=== PATIENT | female | born 1975 | race Caucasian/White ===

== ENCOUNTER 2018-10-03 17:23 | Emergency (ER) | payer OTHER ==
[2018-10-03 18:23] LABS: Urine Blood NEGATIVE (NEG); Urine Glucose NEGATIVE (NEG); Urine Protein NEGATIVE (NEG); Urine pH 7.5 (5.0-7.0)
[2018-10-03 18:31] LABS: Absolute Lymphocytes (CBC) 2.4 K/uL (0.7-4.9); Absolute Monocytes 0.3 K/uL (0.1-1.3); Absolute Neutrophil 3.6 K/uL (1.8-8.0); Basophils % 0.8 % (0-1.3); Eosinophils % 1.3 % (0-4.4); Hematocrit 40.5 % (36.0-45.0); Lymphocytes % 36.8 % (15.3-44.8); MPV 8.4 fL (7.6-11.3); Monocytes % 5.3 % (3.3-12.3); RBC Red Blood Cell Count 4.36 M/uL (3.86-4.86)
[2018-10-03 18:43] LABS: ALT/SGPT 28 U/L (12-78); AST/SGOT 21 U/L (15-37); Albumin 4.1 g/dL (3.4-5.0); Alkaline Phosphatase 105 U/L (45-117); BUN Blood Urea Nitrogen 21 mg/dL (7-18); Bicarbonate 32 mmol/L (21-32); Bilirubin Direct < 0.1 mg/dL (0-0.2); Bilirubin Total 0.2 mg/dL (0.2-1.0); Glucose Level 97 mg/dL (74-106); Lipase 253 U/L (73-393); Potassium 3.8 mmol/L (3.5-5.1); Protein, Total 7.7 g/dL (6.4-8.2); Sodium Level 145 mmol/L (136-145)
[2018-10-03] MEDS ORDERED: PROMETHAZINE 25 MG/ML VIAL ONE (18:45)
--- NOTE | 2018-10-03 19:29 | RAD REPORT ---
EXAM DESCRIPTION: CT - Abdomen Pelvis W Contrast - 10/03/2018 7:08 pm CLINICAL HISTORY: Abdominal pain with nausea. COMPARISON: 2016. TECHNIQUE: Computed axial tomography of the abdomen pelvis was obtained. 100 cc Isovue-300 was admin istered intravenously. Oral contrast was not requested which limits evaluation of bowel. All CT scans are performed using dose optimization technique as appropriate and may include automated exposure control or mA/KV adjustment according to patient size. FINDINGS: The liver, spleen, pancreas, adrenal and kidneys appear unremarkable. There is no evidence of diverticulitis. Postsurgical changes involve the stomach A hysterectomy has been performed. An adnexal mass is not seen IMPRESSION: No acute abnormality is displayed.
--- NOTE | 2018-10-03 19:45 | ER ---
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 Transition of care: patient was not received from another setting of care. Onset of symptoms was October 03, 2018. Risk Assessment: Do you want to hurt yourself or someone else? Patient reports no desire to harm self or others. Initial Sepsis Screen: Does the patient meet any 2 criteria? No. Patient's initial sepsis screen is negative. Does the patient have a suspected source of infection? No. Patient's initial sepsis screen is negative. Care prior to arrival: None. 17:35 Method Of Arrival: Ambulatory sg 17:35 Acuity: CINDY 3 sg SYSTEMS TESTER: 19:32 LMP N/A - Hysterectomy tl3 Historical: - Allergies: 17:37 No Known Allergies; sg - PMHx: 17:28 Kidney stones; sg - PSHx: 17:28 Hysterectomy; Hernia repair; rectocele repair; abdominal mass removed; Tubal ligation; sg reversed tubal; - Immunization history:: Adult Immunizations up to date. - Social history:: Smoking status: Patient/guardian denies using tobacco. - Ebola Screening: : Patient negative for fever greater than or equal to 101.5 degrees Fahrenheit, and additional compatible Ebola Virus Disease symptoms Patient denies exposure to infectious person Patient denies travel to an Ebola-affected area in the 21 days before illness onset No symptoms or risks identified at this time. Screenin:40 Abuse screen: Denies threats or abuse. Nutritional screening: No deficits noted. tl3 Tuberculosis screening: No symptoms or risk factors identified. Fall Risk None identified. Assessment: 18:40 General: Appears uncomfortable, slender, well groomed, well developed, well nourished, tl3 Behavior is calm, cooperative, appropriate for age. Pain: Complains of pain in left inguinal area and left lower quadrant. Neuro: Level of Consciousness is awake, alert, obeys commands, Oriented to person, place, time, situation, Appropriate for age. Cardiovascular: Patient's skin is warm and dry. Respiratory: Airway is patent Respiratory effort is even, unlabored, Respiratory pattern is regular, symmetrical. GI: Reports lower abdominal pain. : No signs and/or symptoms were reported regarding the genitourinary system. EENT: No signs and/or symptoms were reported regarding the EENT system. Derm: No signs and/or symptoms reported regarding the dermatologic system. 19:15 Reassessment: patient is back from ct scan.. mg2 20:12 Reassessment: Patient appears in no apparent distress at this time. No changes from tl3 previously documented assessment. Patient and/or family updated on plan of care and expected duration. Pain level reassessed. Patient is alert, oriented x 3, equal unlabored respirations, skin warm/dry/pink. Vital Signs: 17:37 BP 135 / 85; Pulse 72; Resp 17; Temp 98.1; Pulse Ox 100% on R/A; Weight 58.97 kg; sg Height 5 ft. 3 in. (160.02 cm); Pain 8/10; 19:18 BP 119 / 80; Pulse 67; Resp 18; Pulse Ox 100% on R/A; mg2 20:12 BP 119 / 80; Pulse 67; Resp 18; Pulse Ox 100% on R/A; tl3 17:37 Body Mass Index 23.03 (58.97 kg, 160.02 cm) ED Course: 17:24 Patient arrived in ED. sb2 17:24 Herb Murguia MD is Private Physician. sb2 17:27 Arm band placed on. sg 17:32 Mak Smith PA is PHCP. jr8 17:32 Chandra Hassan MD is Attending Physician. jr8 17:37 Triage completed. sg 17:59 Jayla Jane, VINNIE is Primary Nurse. tl3 18:18 Initial lab(s) drawn, by az, sent to lab. Urine collected: clean catch specimen, tm3 cloudy. Inserted saline lock: 22 gauge in left antecubital area, using aseptic technique. 18:40 Patient has correct armband on for positive identification. Pulse ox on. NIBP on. tl3 19:[address] via wheelchair. nj 19:07 CT completed. Patient tolerated procedure well. Patient moved back from CT. nj 19:37 CT Abd/Pelvis - W/Contrast Sent. tl3 19:37 Urine --Ancillary (enter results) Sent. tl3 19:38 Urine Dipstick--Ancillary (enter results) Sent. tl3 19:38 Basic Metabolic Panel Sent. tl3 19:38 CBC with Diff Sent. tl3 19:38 Creatinine for Radiology Sent. tl3 19:38 Hepatic Function Sent. tl3 19:38 Lipase Sent. tl3 19:44 Kobi Schultz MD is Referral Physician. jr8 20:12 No provider procedures requiring assistance completed. IV discontinued, intact, tl3 bleeding controlled, No redness/swelling at site. Pressure dressing applied. Administered Medications: 19:18 Drug: Promethazine 12.5 mg Route: IVP; Infused Over: 2 mins; Site: left antecubital; tl3 19:31 Follow up: Response: Nausea is decreased tl3 Outcome: 19:44 Discharge ordered by . jr8 20:12 Discharged to home ambulatory. tl3 20:12 Condition: stable 20:12 Discharge instructions given to patient, Instructed on discharge instructions, follow up and referral plans. Demonstrated understanding of instructions, follow-up care, medications. 20:15 Patient left the ED. tl3 Signatures: Eddie Min tm3 Fede Bedolla, RN RN sg Mak Smith PA PA jr8 Gabriele Coelho Sheri sb2 Jayla Jane RN RN tl3 Alessandro Hatch RN RN mg2 Corrections: (The following items were deleted from the chart) 19:43 19:32 LMP 2018 tl3 tl3
--- NOTE | 2018-10-03 19:45 | EDPHYS ---
Physician Documentation [facility] Name: Marta Barraza Age: 43 yrs Sex: Female : 1975 Arrival Date: 10/03/2018 Time: 17:24 Bed 27 Private MD: Herb Murguia R ED Physician Chandra Hassan HPI: 10/03 18:29 This 43 yrs old Female presents to ER via Ambulatory with complaints of jr8 abdominal pain. 18:29 The patient presents with abdominal pain in the left lower quadrant. Onset: The jr8 symptoms/episode began/occurred gradually, 2 day(s) ago. The symptoms do not radiate. Associated signs and symptoms: Pertinent positives: nausea. The symptoms are described as stabbing. 18:30 Modifying factors: The symptoms are alleviated by nothing, the symptoms are aggravated jr8 by movement, pressure. Severity of pain: At its worst the pain was moderate in the emergency department the pain has improved mildly. The patient has experienced a previous episode. The patient has not recently seen a physician. Patient with recent diagnosis of bilateral femoral hernias. Stated that the right does not affect her but the left hurts her most every day. For the past couple of days has become much worse. Has already seen surgeon for this and had scheduled surgery but had to move it back to later date. Called them today in which they told her to come to ED to r/o strangulation . 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 - Social history:: Smoking status: Patient/guardian denies using tobacco. - Ebola Screening: : Patient negative for fever greater than or equal to 101.5 degrees Fahrenheit, and additional compatible Ebola Virus Disease symptoms Patient denies exposure to infectious person Patient denies travel to an Ebola-affected area in the 21 days before illness onset No symptoms or risks identified at this time. ROS: 18:30 Eyes: Negative for injury, pain, redness, and discharge, ENT: Negative for injury, jr8 pain, and discharge, Neck: Negative for injury, pain, and swelling, Cardiovascular: Negative for chest pain, palpitations, and edema, Respiratory: Negative for shortness of breath, cough, wheezing, and pleuritic chest pain, Back: Negative for injury and pain, MS/Extremity: Negative for injury and deformity, Skin: Negative for injury, rash, and discoloration, Neuro: Negative for headache, weakness, numbness, tingling, and seizure. 18:30 Abdomen/GI: Positive for abdominal pain, nausea, constipation, Negative for vomiting, diarrhea, abdominal cramps, abdominal distension, anorexia, dysphagia, hematemesis, black/tarry stool, rectal pain, rectal bleeding, bowel incontinence, flatulence. Exam: 18:30 Eyes: Pupils equal round and reactive to light, extra-ocular motions intact. Lids and jr8 lashes normal. Conjunctiva and sclera are non-icteric and not injected. Cornea within normal limits. Periorbital areas with no swelling, redness, or edema. ENT: Nares patent. No nasal discharge, no septal abnormalities noted. Tympanic membranes are normal and external auditory canals are clear. Oropharynx with no redness, swelling, or masses, exudates, or evidence of obstruction, uvula midline. Mucous membranes moist. Neck: Trachea midline, no thyromegaly or masses palpated, and no cervical lymphadenopathy. Supple, full range of motion without nuchal rigidity, or vertebral point tenderness. No Meningismus. Cardiovascular: Regular rate and rhythm with a normal S1 and S2. No gallops, murmurs, or rubs. Normal PMI, no JVD. No pulse deficits. Respiratory: Lungs have equal breath sounds bilaterally, clear to auscultation and percussion. No rales, rhonchi or wheezes noted. No increased work of breathing, no retractions or nasal flaring. Back: No spinal tenderness. No costovertebral tenderness. Full range of motion. Skin: Warm, dry with normal turgor. Normal color with no rashes, no lesions, and no evidence of cellulitis. MS/ Extremity: Pulses equal, no cyanosis. Neurovascular intact. Full, normal range of motion. Neuro: Awake and alert, GCS 15, oriented to person, place, time, and situation. Cranial nerves II-XII grossly intact. Motor strength 5/5 in all extremities. Sensory grossly intact. Cerebellar exam normal. Normal gait. 18:30 Abdomen/GI: Inspection: abdomen appears normal, Bowel sounds: active, all quadrants, Palpation: soft, in all quadrants, mild abdominal tenderness, in the left lower quadrant, mass, is not appreciated, rebound tenderness, is not appreciated, voluntary guarding, is not appreciated, involuntary guarding, is not appreciated, no appreciated organomegaly, Indicators: McBurney's point is not tender, Philippe's sign is negative, Rovsing's sign is negative, Liver: tenderness, is not appreciated, Hernia: noted in the left inguinal area. Vital Signs: 17:37 BP 135 / 85; Pulse 72; Resp 17; Temp 98.1; Pulse Ox 100% on R/A; Weight 58.97 kg; sg Height 5 ft. 3 in. (160.02 cm); Pain 8/10; 19:18 BP 119 / 80; Pulse 67; Resp 18; Pulse Ox 100% on R/A; mg2 20:12 BP 119 / 80; Pulse 67; Resp 18; Pulse Ox 100% on R/A; tl3 17:37 Body Mass Index 23.03 (58.97 kg, 160.02 cm) sg MDM: 17:32 Patient medically screened. jr8 19:41 Data reviewed: vital signs, nurses notes, lab test result(s), radiologic studies, CT jr scan. Data interpreted: Pulse oximetry: on room air is 100 %. Interpretation: normal. Counseling: I had a detailed discussion with the patient and/or guardian regarding: the historical points, exam findings, and any diagnostic results supporting the discharge/admit diagnosis, lab results, radiology results, the need for outpatient follow up, a general surgeon, to return to the emergency department if symptoms worsen or persist or if there are any questions or concerns that arise at home. ED course: No acute hernia related findings on CT. Rest of abdomen unremarkable. No acute lab findings. Will f/u with Dr. Schlutz in a few days. Otherwise feels better and would come back if something were to change or worsen . 10/03 17:41 Order name: Basic Metabolic Panel 8 10/03 17:41 Order name: CBC with Diff 8 10/03 17:41 Order name: Creatinine for Radiology 10/03 17:41 Order name: Hepatic Function 10/03 17:41 Order name: Lipase 10/03 18:09 Order name: Urine Dipstick--Ancillary (enter results) ms 10/03 18:09 Order name: Urine --Ancillary (enter results) ms 10/03 18:24 Order name: Urine --Ancillary; Complete Time: 18:28 EDMS 10/03 18:24 Order name: Urine Dipstick-Ancillary; Complete Time: 18:28 EDMS 10/03 18:34 Order name: CBC with Automated Diff; Complete Time: 18:34 EDMS 10/03 18:41 Order name: Creatinine (Radiology Only); Complete Time: 18:45 EDMS 10/03 18:44 Order name: Basic Metabolic Panel; Complete Time: 18:45 EDMS 10/03 18:44 Order name: Liver (Hepatic) Function; Complete Time: 18:45 EDMS 10/03 18:44 Order name: Lipase; Complete Time: 18:45 EDMS 10/03 17:41 Order name: IV Saline Lock; Complete Time: 19:15 8 10/03 17:41 Order name: Labs collected and sent; Complete Time: 19:15 [facility] 10/03 18:45 Order name: CT Abd/Pelvis - W/Contrast [facility] 10/03 19:31 Order name: CT; Complete Time: 19:34 EDMS Administered Medications: 19:18 Drug: Promethazine 12.5 mg Route: IVP; Infused Over: 2 mins; Site: left antecubital; tl3 19:31 Follow up: Response: Nausea is decreased tl3 Disposition: 10/03/18 19:44 Discharged to Home. Impression: Abdominal and pelvic pain. - Condition is Stable. - Discharge Instructions: Abdominal Pain, Adult. - Medication Reconciliation Form, Thank You Letter, Antibiotic Education, Prescription Opioid Use form. - Follow up: Kobi Schultz MD; When: 2 - 3 days; Reason: Recheck today's complaints, Continuance of care, Re-evaluation by your physician. - Problem is new. - Symptoms have improved. Addendum: 10/06/2018 01:35 Co-signature as Attending Physician, Chandra Hassan MD. g s Signatures: Dispatcher [employer] EDMS Fede Bedolla RN RN sg Mak Smith, AASHISH PA [facility] Chandra Hassan MD MD Jayla Jane RN RN tl3 Corrections: (The following items were deleted from the chart) 10/03 20:15 19:44 10/03/2018 19:44 Discharged to Home. Impression: Abdominal and pelvic pain. tl3 Condition is Stable. Forms are Medication Reconciliation Form, Thank You Letter, Antibiotic Education, Prescription Opioid Use. Follow up: Kobi Schultz; When: 2 - 3 days; Reason: Recheck today's complaints, Continuance of care, Re-evaluation by your physician. Problem is new. Symptoms have improved. jr8
[2018-10-03 20:43] VITALS: BP 119/80; O2SAT 100
[2018-10-03 20:45] VITALS: TEMP 98.1
== END 2018-10-03 20:15 | disposition home or self-care (01) ==
LOC: ER 17:23
DX: R10.9 Unspecified abdominal pain (principal); R10.2 Pelvic and perineal pain; K40.90 Unilateral inguinal hernia, without obstruction or gangrene, not specified as recurrent
CPT/HCPCS: 36415; 74177; 80048; 80076; 81003; 81025; 83690; 85025; 96374; 99284; J2550; Q9967

== ENCOUNTER 2019-01-29 20:27 | Inpatient (IN) | payer OTHER, SELFPAY ==
[2019-01-29 21:18] LABS: Absolute Lymphocytes (CBC) 2.3 K/uL (0.7-4.9); Absolute Monocytes 0.4 K/uL (0.1-1.3); Absolute Neutrophil 4.5 K/uL (1.8-8.0); Basophils % 0.6 % (0-1.3); Eosinophils % 1.6 % (0-4.4); Hematocrit 37.5 % (36.0-45.0); Lymphocytes % 31.8 % (15.3-44.8); MPV 8.3 fL (7.6-11.3); Monocytes % 5.1 % (3.3-12.3); RBC Red Blood Cell Count 3.98 M/uL (3.86-4.86)
--- NOTE | 2019-01-29 21:34 | ER ---
Nurse's Notes [facility] Name: Marta Barraza Age: 43 yrs Sex: Female : 1975 Arrival Date: 01/29/2019 Time: 20:28 Bed 23 Private MD: Herb Murguia R Diagnosis: Femoral hernia Presentation: 01/29 20:34 Presenting complaint: Patient states: Left groin pain at hernia site that started aj suddenly 1 hour ago. Denies redness. Transition of care: patient was not received from another setting of care. Onset of symptoms was January 29, 2019. Risk Assessment: Do you want to hurt yourself or someone else? Patient reports no desire to harm self or others. Initial Sepsis Screen: Does the patient meet any 2 criteria? No. Patient's initial sepsis screen is negative. Does the patient have a suspected source of infection? No. Patient's initial sepsis screen is negative. Care prior to arrival: None. 20:34 Method Of Arrival: Ambulatory aj 20:34 Acuity: CINDY 3 aj Triage Assessment: 20:35 General: Appears in no apparent distress. comfortable, Behavior is calm, cooperative, aj appropriate for age. Pain: Complains of pain in left femoral area. Neuro: Level of Consciousness is awake, alert, obeys commands, Oriented to person, place, time, situation, Appropriate for age. Respiratory: Airway is patent Respiratory effort is even, unlabored, Respiratory pattern is regular, symmetrical. Derm: Skin is intact, is healthy with good turgor, Skin is pink, warm \T\ dry. normal. 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 - Social history:: Smoking status: Patient/guardian denies using tobacco. - Ebola Screening: : Patient negative for fever greater than or equal to 101.5 degrees Fahrenheit, and additional compatible Ebola Virus Disease symptoms Patient denies exposure to infectious person Patient denies travel to an Ebola-affected area in the 21 days before illness onset No symptoms or risks identified at this time. Screenin:21 Abuse screen: Denies threats or abuse. Denies injuries from another. Nutritional rv screening: No deficits noted. Tuberculosis screening: Fall Risk None identified. Assessment: 21:19 General: Appears in no apparent distress. comfortable, Behavior is calm, cooperative. rv Pain: Complains of pain in pelvis and left femoral area Pain currently is 7 out of 10 on a pain scale. Neuro: Level of Consciousness is awake, alert, obeys commands, Oriented to person, place, time, situation. Cardiovascular: Capillary refill < 3 seconds. Respiratory: Airway is patent. GI: No signs and/or symptoms were reported involving the gastrointestinal system. : No signs and/or symptoms were reported regarding the genitourinary system. EENT: No signs and/or symptoms were reported regarding the EENT system. Derm: Skin is intact. Musculoskeletal: No signs and/or symptoms reported regarding the musculoskeletal system. Vital Signs: 20:35 BP 118 / 79; Pulse 81; Resp 19; Temp 97.1; Pulse Ox 96% on R/A; Weight 58.97 kg; Height aj 5 ft. 2 in. (157.48 cm); 21:22 BP 108 / 94; Pulse 68; Resp 16; Pulse Ox 98% ; rv 22:00 BP 113 / 90; Pulse 70; Resp 17; Pulse Ox 99% ; rv 23:00 BP 118 / 74; Pulse 71; Resp 15; Pulse Ox 99% ; rv 01/30 00:00 BP 116 / 81; Pulse 65; Resp 14; Pulse Ox 98% ; rv 00:30 BP 121 / 87; Pulse 58; Resp 15; Pulse Ox 99% ; rv 01/29 20:35 Body Mass Index 23.78 (58.97 kg, 157.48 cm) ED Course: 01/29 20:28 Patient arrived in ED. es 20:29 Herb Murguia MD is Private Physician. es 20:35 Triage completed. aj 20:35 Arm band placed on right wrist. Patient placed in an exam room. aj 20:38 Phuc Aguillon, VINNIE is Primary Nurse. rv 20:46 Nicholas Hewitt MD is Attending Physician. tw4 21:05 Inserted saline lock: 22 gauge in left forearm, using aseptic technique. Blood rv collected. 21:21 Patient has correct armband on for positive identification. Bed in low position. Call rv light in reach. Side rails up X 1. Pulse ox on. NIBP on. 21:32 Dean Muller MD is Hospitalizing Provider. 01/30 00:55 No provider procedures requiring assistance completed. Patient admitted, IV remains in rv place. Administered Medications: No medications were administered Outcome: 01/29 21:33 Decision to Hospitalize by Provider. 01/30 00:55 Admitted to Med/surg accompanied by nurse, via wheelchair, room 218, with chart, Report rv called to [facility] Condition: good Instructed on the need for admit. 01:04 Patient left the ED. rv Signatures: Renay Gaspar, RN RN Kailyn Wellington Terrence, MD MD Phuc Aguillon, RN RN rv
--- NOTE | 2019-01-29 21:34 | EDPHYS ---
Physician Documentation [facility] Name: Marta Barraza Age: 43 yrs Sex: Female : 1975 Arrival Date: 01/29/2019 Time: 20:28 Bed 23 Private MD: Herb Murguia R ED Physician Nicholas Hewitt HPI: 01/30 06:44 This 43 yrs old Female presents to ER via Ambulatory with complaints of LT tw4 SIDE PAIN DOWN TO LEG. 06:44 The patient presents with abdominal pain. Onset: The symptoms/episode began/occurred tw4 last week. The symptoms radiate to left leg. Associated signs and symptoms: none. The symptoms are described as dull. Modifying factors: The symptoms are alleviated by nothing, the symptoms are aggravated by alcohol. Severity of pain: At its worst the pain was moderate in the emergency department the pain is unchanged. The patient has not experienced similar symptoms in the past. 06:44 Pt sent to Ed by Dr Muller. pt symptoms similar to previous pain she has had with tw4 hernia. 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 - Social history:: Smoking status: Patient/guardian denies using tobacco. - Ebola Screening: : Patient negative for fever greater than or equal to 101.5 degrees Fahrenheit, and additional compatible Ebola Virus Disease symptoms Patient denies exposure to infectious person Patient denies travel to an Ebola-affected area in the 21 days before illness onset No symptoms or risks identified at this time. ROS: 01/30 06:44 Constitutional: Negative for fever, chills, and weight loss, Cardiovascular: Negative tw4 for chest pain, palpitations, and edema, Respiratory: Negative for shortness of breath, cough, wheezing, and pleuritic chest pain, Back: Negative for injury and pain, MS/Extremity: Negative for injury and deformity, Skin: Negative for injury, rash, and discoloration, Neuro: Negative for headache, weakness, numbness, tingling, and seizure. Abdomen/GI: Positive for abdominal pain, Negative for nausea and vomiting, nausea, vomiting, and diarrhea, nausea, vomiting, diarrhea, constipation, abdominal cramps, abdominal distension, anorexia, dysphagia, hematemesis, black/tarry stool, rectal pain, rectal bleeding, bowel incontinence. Exam: 06:44 Constitutional: This is a well developed, well nourished patient who is awake, alert, tw4 and in no acute distress. Head/Face: Normocephalic, atraumatic. Chest/axilla: Normal chest wall appearance and motion. Nontender with no deformity. No lesions are appreciated. Cardiovascular: Regular rate and rhythm with a normal S1 and S2. No gallops, murmurs, or rubs. Normal PMI, no JVD. No pulse deficits. Respiratory: Lungs have equal breath sounds bilaterally, clear to auscultation and percussion. No rales, rhonchi or wheezes noted. No increased work of breathing, no retractions or nasal flaring. Back: No spinal tenderness. No costovertebral tenderness. Full range of motion. MS/ Extremity: Pulses equal, no cyanosis. Neurovascular intact. Full, normal range of motion. Neuro: Awake and alert, GCS 15, oriented to person, place, time, and situation. Cranial nerves II-XII grossly intact. Motor strength 5/5 in all extremities. Sensory grossly intact. Cerebellar exam normal. Normal gait. 06:44 Abdomen/GI: Inspection: abdomen appears normal, Bowel sounds: normal, Palpation: moderate abdominal tenderness, in the left lower quadrant. Vital Signs: 01/29 20:35 BP 118 / 79; Pulse 81; Resp 19; Temp 97.1; Pulse Ox 96% on R/A; Weight 58.97 kg; Height aj 5 ft. 2 in. (157.48 cm); 21:22 BP 108 / 94; Pulse 68; Resp 16; Pulse Ox 98% ; rv 22:00 BP 113 / 90; Pulse 70; Resp 17; Pulse Ox 99% ; rv 23:00 BP 118 / 74; Pulse 71; Resp 15; Pulse Ox 99% ; rv 01/30 00:00 BP 116 / 81; Pulse 65; Resp 14; Pulse Ox 98% ; rv 00:30 BP 121 / 87; Pulse 58; Resp 15; Pulse Ox 99% ; rv 01/29 20:35 Body Mass Index 23.78 (58.97 kg, 157.48 cm) aj MDM: 01/29 20:46 Patient medically screened. tw 01/30 06:48 Data reviewed: vital signs, nurses notes. Counseling: I had a detailed discussion with tw the patient and/or guardian regarding: the historical points, exam findings, and any diagnostic results supporting the discharge/admit diagnosis, lab results. Physician consultation: Dean Muller MD regarding admission, and will see patient in inpatient room. Admission orders: after a detailed discussion of the patient's condition and case, the admit orders are written by me. ED course: Pt rested comfortably on the stretcher states that she felt well, no new complaint while waiting in the ED. 01/29 20:51 Order name: Basic Metabolic Panel [facility] 01/29 20:51 Order name: CBC with Diff [facility] 01/29 20:51 Order name: Creatinine for Radiology [facility] 01/29 20:51 Order name: Hepatic Function [facility] 01/29 20:51 Order name: Lipase [facility] 01/30 00:45 Order name: Basic Metabolic Panel [facility] 01/30 00:45 Order name: NPO [facility] 01/30 00:45 Order name: Basic Metabolic Panel [facility] 01/30 00:45 Order name: CBC with Automated Diff [facility] 01/30 00:45 Order name: CBC with Automated Diff [facility] 01/30 00:45 Order name: Lipase [facility] 01/30 00:45 Order name: Lipase [facility] 01/30 00:45 Order name: Liver (Hepatic) Function [facility] 01/30 00:45 Order name: Liver (Hepatic) Function [facility] 01/29 20:51 Order name: IV Saline Lock; Complete Time: 21:24 [facility] 01/29 20:51 Order name: Labs collected and sent; Complete Time: 21:24 [facility] Administered Medications: No medications were administered Disposition: 01/29/19 21:33 Hospitalization ordered by Dean Muller for Inpatient Admission. Preliminary diagnosis is Femoral hernia. - Bed requested for Telemetry/MedSurg (Inpatient). - Status is Inpatient Admission. rv - Condition is Stable. - Problem is new. - Symptoms have improved. UTI on Admission? No Signatures: Dispatcher [employer] EDRenay Schmidt RN RN Nicholas Durand MD MD tw4 Phuc Aguillon, RN RN Traci Murray ar5 Corrections: (The following items were deleted from the chart) 01/29 23:02 21:33 Hospitalization Ordered by Dean Muller MD for Inpatient Admission. Preliminary ar5 diagnosis is Femoral hernia. Bed requested for Telemetry/MedSurg (Inpatient). Status is Inpatient Admission. Condition is Stable. Problem is new. Symptoms have improved. UTI on Admission? No. tw4 01/30 01:04 01/29 23:02 01/29/2019 21:33 Hospitalization Ordered by Dean Muller MD for Inpatient rv Admission. Preliminary diagnosis is Femoral hernia. Bed requested for Telemetry/MedSurg (Inpatient). Status is Inpatient Admission. Condition is Stable. Problem is new. Symptoms have improved. UTI on Admission? No. ar5
[2019-01-29 21:44] LABS: ALT/SGPT 25 U/L (12-78); AST/SGOT 22 U/L (15-37); Albumin 3.9 g/dL (3.4-5.0); Alkaline Phosphatase 109 U/L (45-117); BUN Blood Urea Nitrogen 15 mg/dL (7-18); Bicarbonate 27 mmol/L (21-32); Bilirubin Direct < 0.1 mg/dL (0-0.2); Bilirubin Total 0.3 mg/dL (0.2-1.0); Glucose Level 95 mg/dL (74-106); Lipase 213 U/L (73-393); Potassium 3.7 mmol/L (3.5-5.1); Protein, Total 7.1 g/dL (6.4-8.2); Sodium Level 144 mmol/L (136-145)
[2019-01-30] MEDS ORDERED: ONDANSETRON 4 MG/2 ML VIAL IV PRN (00:43)
[2019-01-30 01:18] VITALS: BMI 25.2
[2019-01-30] MEDS ORDERED: MORPHINE 4 MG/ML SYR IV PRN (01:39)
[2019-01-30] MEDS: D5 0.45 NS 1,000 ML IV SCH ×3 (01:53→16:44)
[2019-01-30] MEDS: PROMETHAZINE 25 MG/ML VIAL IV PRN ×2 (02:39→11:44)
--- NOTE | 2019-01-30 13:02 | P.HP ---
Certification for Inpatient Patient admitted to: Observation With expected LOS: <2 Midnights Patient will require the following post-hospital care: None Practitioner: I am a practitioner with admitting privileges, knowledge of patient current condition, hospital course, and medical plan of care. Services: Services provided to patient in accordance with Admission requirements found in Title 42 Section 412.3 of the Code of Federal Regulations Patient History Date of Service: 01/30/19 Reason for admission: Left lower groin pain with numbness and left leg History of Present Illness: This patient, has been having pain in the left groin area. She had a previous bulge in that area. It had been reduced few weeks ago. He came back last night causing increasing pain and discomfort with numbness in her left leg. She was evaluated in emergency room. She had been scheduled to have this procedure done late last year however it was canceled for some reason. Allergies No Known Drug Allergies Allergy (Verified 01/30/19 01:19) Unknown No Known Allergi Allergy (Uncoded 01/30/19 01:19) Unknown Home medications list reviewed: Yes Home Medications: NK [No Home Meds] 01/30/19 - Past Medical/Surgical History Has patient received pneumonia vaccine in the past: No Diabetic: No Past Medical History: Patient denies medical history -: Kidney Stones -: APPENDECTOMY -: TUBAL LIGTION AND REVERSAL -: Rectocele Repair -: Abdominal mass removed -: Hernia repair - Family History Family History: Reviewed- Non-Contributory - Social History Smoking Status: Never smoker Alcohol use: No CD- Drugs: No Caffeine use: Yes Place of Residence: Home Review of Systems 10-point ROS is otherwise unremarkable Physical Examination - Vital Signs Temperature: 97.5 F Blood Pressure: 106/66 Pulse: 62 Respirations: 16 Pulse Ox (%): 99 - Physical Exam General: Alert (Patient is in no distress at the moment and is comfortable. States that the hernia is reduced.) HEENT: Sclerae nonicteric Respiratory: Normal air movement Cardiovascular: Normal pulses Gastrointestinal: Soft and benign, No tenderness, No rebound, No guarding Musculoskeletal: Other (Mild tenderness in the left inguinal area. There is no mass palpable at the moment.) External genitalia: Deferred - Studies Laboratory Data (last 24 hrs) 01/29/19 21:10: Creatinine 1.04 01/29/19 21:10: WBC 7.3, Hgb 12.8, Hct 37.5, Plt Count 316 01/29/19 21:10: Sodium 144, Potassium 3.7, BUN 15, Creatinine 1.07, Glucose 95, Total Bilirubin 0.3, AST 22, ALT 25, Alkaline Phosphatase 109, Lipase 213 Assessment and Plan - Plan This patient was scheduled before to have bilateral inguinal hernia repairs performed. The rigid to an open procedure. There was a delay in the surgeon was not performed. Since then she has had increasing pain and discomfort more markedly on the left side. On review of the CT scan with the radiologist be feels there is a small inguinal hernia in that area. I will take her to the operating room for laparoscopic repair of these bilateral inguinal hernias with mesh. The risks of this procedure have been discussed. I have told her that there may Re not be another hernia on the right side, that we will try and do it laparoscopically however if I am able to may need to convert to an open procedure. The risks of bleeding, infection, injury to organs and blood vessels were explained. She has had pelvic surgery for rectocele/enterocele/bladder incontinence in the past as well as ventral hernia repairs. She understands and wants us to proceed. - Advance Directives Does patient have a Living Will: No Does patient have a Durable POA for Healthcare: No
[2019-01-30] MEDS ORDERED: MIDAZOLAM HCL 2 MG/2 ML INJ ONE (13:06)
[2019-01-30] MEDS ORDERED: LIDOCAINE 2% MPF 5 ML VIAL ONE (13:06)
[2019-01-30] MEDS ORDERED: PROPOFOL 200 MG/20 ML VIAL IV ONE (13:06)
[2019-01-30] MEDS ORDERED: ROCURONIUM 50 MG/5 ML VIAL IV ONE (13:06)
[2019-01-30] MEDS ORDERED: FENTANYL CITR 250 MCG/5 ML ONE (13:06)
[2019-01-30] MEDS ORDERED: ONDANSETRON 4 MG/2 ML VIAL ONE (13:06)
[2019-01-30] MEDS ORDERED: Ringers Lactate 1,000 ML IV ONE (13:33)
[2019-01-30] MEDS ORDERED: CEFAZOLIN/SWI 1gm 1 GM/10 ML SYR ONE (13:35)
[2019-01-30] MEDS ORDERED: DEXAMETHASONE 10 MG/ML VIAL ONE (13:50)
[2019-01-30] MEDS ORDERED: EPHEDRINE SULF 50 MG/ML VIAL ONE (14:05)
--- NOTE | 2019-01-30 14:42 | P.OP ---
Preoperative diagnosis: Bilateral inguinal hernias Postoperative diagnosis: A torsed hemorrhagic ovarian cyst Primary procedure: Laparoscopy Secondary procedure: Right oophorectomy Anesthesia: General Estimated blood loss: Less than 10 cc Specimen: 1 sent for histopathology Operative Technique: The patient brought the operating room and placed supine on the table. After the induction of adequate general endotracheal anesthesia, a Huizar catheter was inserted. The area of the abdomen was now prepped with a DuraPrep solutions use draped in usual aseptic manner. A subumbilical incision was made. This brought down through the skin and subcutaneous tissue. The dissecting balloon was now passed down towards the pelvis inflated. On removing the inner trocar in place in the camera down through our dissecting balloon we could see that we were intraperitoneal. This patient has had numerous pelvic surgeries including C-sections and appendectomies. Using a Visiport we now entered the peritoneal cavity and created pneumoperitoneum to approximately 12 mm of mercury. The patient is then placed in marked Trendelenburg. We could now review the pelvis and the anterior abdominal wall. Starting from left to right we could see the femoral vessels. The superficial epigastric was identified. There was no evidence of any inguinal hernia seen on the left side. The femoral area was carefully inspected non was noted there is well. Counter pressure from the outside showed all this area to be intact with no evidence of any other abnormalities this area. As the scan across the lower portion the abdomen going to the right side we could see the bladder with the Huizar catheter inside it being decompressed. On the right side there was a area of the remains of her ovary on that right side. Obviously undergone portion with a hemorrhagic cyst. Attention was turned towards the right inguinal area. Once again the epigastric vessel was identified as well as the femoral vessels on Oswaldo's ligament. No hernias were detected in this area as well. Attention was turned back towards is torsed ovary which was now resected using a hot electro cautery scissors. The specimen was suspended and carefully placed into an Endo-Catch and brought out through the umbilical trocar site. At this point the abdomen is inspected. No other midline hernias were noted. There were some adhesions in the left upper quadrant worsened patient has had her gastric sleeve. No hernias were noted along the midline the area of the patient's previous appendectomy did show some adhesions of the omentum to the anterior abdominal wall. These were left alone. At this point our 10 mm was converted down to a 5 through the right lower 5 mm trocar. 2 sutures of 2 0 PDS were used to approximate the facile defect. The muscles were approximated with the same. At this point the pneumoperitoneum was collapsed, the patient taken out of Trendelenburg, and lara were applied to the skin. At the end of the procedure she was stable when sent to the recovery room. Needle sponge instrument count were correct. No drains were placed. Complications: None Transferred to: Recovery Room Condition: Good
[2019-01-30] MEDS ORDERED: NEOSTIGMINE 1 MG/ML -10 ML VIAL ONE (14:46)
[2019-01-30] MEDS ORDERED: GLYCOPYRROLATE 0.2 MG/ML SYR ONE (14:46)
[2019-01-30] MEDS ORDERED: KETOROLAC 30 MG/ML INJ ONE (14:48)
[2019-01-30] MEDS ORDERED: HYDROCODONE/APAP 7.5/325 MG TAB PO PRN (14:48)
[2019-01-30 14:55] VITALS: O2SAT 100
[2019-01-30 18:34] VITALS: BP 117/72; TEMP 97
== END 2019-01-30 19:49 | disposition home or self-care (01) | DRG 743 ==
LOC: ER 20:27 → 2ND 01-30 00:56
PROVIDERS: ADMIT Surgery; ATTEND Surgery
PROC: 0UT04ZZ Resection of Right Ovary, Percutaneous Endoscopic Approach (ICD-10-PCS; principal; 2019-01-30 13:30)
DX: N83.511 Torsion of right ovary and ovarian pedicle (principal); N83.201 Unspecified ovarian cyst, right side; Z90.710 Acquired absence of both cervix and uterus
CPT/HCPCS: 36415; 80048; 80076; 83690; 85025; 88305; 96365; 96367; 99285; J0690; J1100; J2250; J2405; J2550; J2704; J2710; J3010

== ENCOUNTER 2019-05-08 16:08 | Inpatient (IN) | payer SELFPAY ==
--- OUTSIDE RECORDS SUMMARY | 2019-05-08 16:10 | XMS REPORT ---
:1975 [facility] Address [address] [place] [address] [address] [place] [address] Care Team Providers Name Role Phone Fly Hein Unavailable Unavailable Divya Chatterjee Unavailable Unavailable Problems This patient has no known problems. Allergies, Adverse Reactions, Alerts This patient has no known allergies or adverse reactions. Medications This patient has no known medications. Encounters Start End Encounter Admission Attending Care Care Encounter Date/Time Date/Time Type Type Clinicians Facility Department ID 2017-01-26 2017-01-26 Outpatient ASHLEY Hein [id number] 10:49:00 10:49:00 Fly 2017-01-26 2017-01-26 Outpatient ASHLEY Chatterjee [id number] 10:49:00 10:49:00 Divya 2017-01-11 2017-01-11 Outpatient ASHLEY Hien [id number] 13:44:00 13:44:00 Fly
[2019-05-08 17:02] LABS: Absolute Lymphocytes (CBC) 2.4 K/uL (0.7-4.9); Basophils % 0.6 % (0-1.3); Hematocrit 39.8 % (36.0-45.0); Lymphocytes % 30.3 % (15.3-44.8); MPV 8.3 fL (7.6-11.3); RBC Red Blood Cell Count 4.28 M/uL (3.86-4.86)
[2019-05-08 17:25] LABS: ALT/SGPT 24 U/L (12-78); AST/SGOT 24 U/L (15-37); Albumin 3.9 g/dL (3.4-5.0); Alkaline Phosphatase 124 U/L (45-117); BUN Blood Urea Nitrogen 18 mg/dL (7-18); Bicarbonate 29 mmol/L (21-32); Bilirubin Direct < 0.1 mg/dL (0-0.2); Bilirubin Total 0.2 mg/dL (0.2-1.0); Glucose Level 84 mg/dL (74-106); Lipase 172 U/L (73-393); Potassium 4.1 mmol/L (3.5-5.1); Protein, Total 7.4 g/dL (6.4-8.2); Sodium Level 146 mmol/L (136-145)
--- NOTE | 2019-05-08 17:46 | ER ---
Nurse's Notes [facility] Name: Marta Barraza Age: 44 yrs Sex: Female : 1975 Arrival Date: 05/08/2019 Time: 16:12 Bed 14 Private MD: Diagnosis: Biliary colic;Intractable pain Presentation: 05/08 16:16 Presenting complaint: Patient states: blanca been struggling with my gall bladder, my R hj upper abd area is hurting and the pain moves to my R back area; i have scheduled US tomorrow but i cant bear the pain anymore; reports nausea;. Transition of care: patient was not received from another setting of care. Onset of symptoms was May 08, 2019. Risk Assessment: Do you want to hurt yourself or someone else? Patient reports no desire to harm self or others. Initial Sepsis Screen: Does the patient meet any 2 criteria? No. Patient's initial sepsis screen is negative. Does the patient have a suspected source of infection? No. Patient's initial sepsis screen is negative. Care prior to arrival: None. 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 - Social history:: Smoking status: . - Ebola Screening: : Patient denies travel to an Ebola-affected area in the 21 days before illness onset. - Family history:: pertinent for poorly functioning gallbladders. - Hospitalizations: : No recent hospitalization is reported. Screenin:21 Abuse screen: Denies threats or abuse. Nutritional screening: No deficits noted. tw2 Tuberculosis screening: No symptoms or risk factors identified. Fall Risk None identified. Assessment: 16:20 General: Appears in no apparent distress. comfortable, Behavior is calm, cooperative, rb1 Denies fever. Pain: Complains of pain in right upper quadrant Pain currently is 0 out of 10 on a pain scale. at worst was 10 out of 10 on a pain scale. Pain began x a couple weeks. Neuro: Level of Consciousness is awake, alert, obeys commands, Oriented to person, place, time, situation. Cardiovascular: Capillary refill < 3 seconds is brisk in bilateral fingers. Respiratory: Airway is patent Respiratory effort is even, unlabored, Respiratory pattern is regular, symmetrical. GI: Bowel sounds present X 4 quads. Abd is soft X 4 quads Reports nausea. : No signs and/or symptoms were reported regarding the genitourinary system. Derm: Skin is pink, warm \T\ dry. 17:20 Reassessment: Patient appears in no apparent distress at this time. No changes from rb1 previously documented assessment. Pt. is talking with her friend at the bedside. 18:15 Reassessment: Patient appears in no apparent distress at this time. Patient and/or rb1 family updated on plan of care and expected duration. Pain level reassessed. Patient is alert, oriented x 3, equal unlabored respirations, skin warm/dry/pink. 19:41 Reassessment: Patient appears in no apparent distress at this time. Patient and/or jd3 family updated on plan of care and expected duration. Pain level reassessed. Patient is alert, oriented x 3, equal unlabored respirations, skin warm/dry/pink. report given to Shannan B[place]MINGHAM. Vital Signs: 16:18 BP 121 / 91; Pulse 79; Resp 18; Temp 97.3(TE); Pulse Ox 100% on R/A; Weight 61.23 kg; hj Height 5 ft. 2 in. (157.48 cm); Pain 8/10; 17:18 BP 118 / 79; Pulse 70; Resp 16; Temp 98.4(O); Pulse Ox 98% on R/A; Pain 7/10; rb1 18:15 BP 112 / 75; Pulse 64; Resp 17; Temp 98.4(O); Pulse Ox 100% on R/A; Pain 7/10; rb1 19:42 BP 108 / 84; Pulse 67; Resp 17 S; Pulse Ox 99% on R/A; jd3 16:18 Body Mass Index 24.69 (61.23 kg, 157.48 cm) ED Course: 16:12 Patient arrived in ED. mr 16:17 Triage completed. 16:18 Arm band placed on right wrist. 16:19 Sky Rizzo MD is Attending Physician. rn 16:22 Placed in gown. Bed in low position. tw2 16:31 Kelley Valdez, RN is Primary Nurse. rb1 16:35 Missed attempt(s): 22 gauge in right antecubital area. Bleeding controlled, band aid rb1 applied, catheter tip intact. 16:50 Inserted saline lock: 22 gauge in left antecubital area, using aseptic technique. Blood tw2 collected. 17:26 US Abdomen Limited In Process Unspecified. EDMS 17:44 Dean Muller MD is Hospitalizing Provider. rn 18:58 Report given to VINNIE Monroy. rb1 19:41 No provider procedures requiring assistance completed. Patient admitted, IV remains in jd3 place. Administered Medications: 18:50 Drug: Phenergan 12.5 mg Route: IVP; Site: left antecubital; rb1 19:50 Follow up: Response: No adverse reaction jd3 18:50 Drug: morphine 4 mg Route: IVP; Site: left antecubital; rb1 19:50 Follow up: Response: No adverse reaction; RASS: Alert and Calm (0) jd3 Outcome: 17:46 Decision to Hospitalize by Provider. rn 19:41 Admitted to Med/surg accompanied by tech, via wheelchair, room 427, with chart, Report jd3 called to Shannan BIRMINGHAM 19:41 Condition: stable 19:41 Instructed on the need for admit, Demonstrated understanding of instructions. 20:22 Patient left the ED. jd3 Signatures: Dispatcher [employer] [facility] CernaSilvia Sky Rizzo MD MD rn Joaquin, Henry, RN RN Kelley Valdez, RN RN rb1 Marie Bill RN RN tw2 Shaq Galdamez RN RN jd3 Corrections: (The following items were deleted from the chart) 16:20 16:18 Pulse 79bpm; Resp 18bpm; Pulse Ox 100% RA; Temp 97.3F Temporal; 61.23 kg; Height hj 5 ft. 2 in.; BMI: 24.6; Pain 8/10; hj 20:09 20:09 Response: No adverse reaction; RASS: Alert and Calm (0) jd3 jd3
--- NOTE | 2019-05-08 17:47 | RAD REPORT ---
EXAM DESCRIPTION: US - Abdomen Exam Limited - 05/08/2019 5:25 pm CLINICAL HISTORY: RUQ pain COMPARISON: Abdomen Pelvis W Contrast dated 10/03/2018 FINDINGS: No gallstones, sludge or other abnormalities within the gallbladder lumen. There is no wal l thickening or pericholecystic fluid. No common duct stone or biliary tree dilatation identified. IMPRESSION: Normal gallbladder and biliary tree ultrasound.
--- NOTE | 2019-05-08 17:47 | EDPHYS ---
Physician Documentation [facility] Name: Marta Barraza Age: 44 yrs Sex: Female : 1975 Arrival Date: 05/08/2019 Time: 16:12 Bed 14 Private MD: ED Physician Sky Rizzo HPI: 05/08 17:38 This 44 yrs old Female presents to ER via Ambulatory with complaints of rn Abdominal Pain, Shoulder Pain. 17:38 The patient presents with abdominal pain in the epigastric area, in the right upper rn quadrant. Onset: The symptoms/episode began/occurred just prior to arrival. The symptoms radiate to the right shoulder. Associated signs and symptoms: Pertinent positives: nausea, Pertinent negatives: blood in stools, diarrhea, dysuria, fever, shortness of breath. The symptoms are described as sharp, stabbing. Modifying factors: The symptoms are alleviated by nothing, the symptoms are aggravated by food, touching the area. Severity of pain: At its worst the pain was severe in the emergency department the pain has improved. The patient has experienced similar episodes in the past. The patient has been recently seen by a physician:. Reports seen by Dr. Muller last week, has outpt u/s scheduled tomorrow, came in for severe pain and couldn't wait. No fever, + nausea. Both daughters had gallbladders removed and due to poor function.. 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 - Social history:: Smoking status: . - Ebola Screening: : Patient denies travel to an Ebola-affected area in the 21 days before illness onset. - Family history:: pertinent for poorly functioning gallbladders. - Hospitalizations: : No recent hospitalization is reported. ROS: 17:38 Constitutional: Negative for fever, chills, and weight loss, Eyes: Negative for injury, rn pain, redness, and discharge, Neck: Negative for injury, pain, and swelling, Cardiovascular: Negative for chest pain, palpitations, and edema, Respiratory: Negative for shortness of breath, cough, wheezing, and pleuritic chest pain, Abdomen/GI: + RUQ abd pain and nausea MS/Extremity: Negative for injury and deformity, Skin: Negative for injury, rash, and discoloration, Neuro: Negative for headache, weakness, numbness, tingling, and seizure. Exam: 17:38 Constitutional: This is a well developed, well nourished patient who is awake, alert, rn anxious Head/Face: Normocephalic, atraumatic. Eyes: Pupils equal round and reactive to light, extra-ocular motions intact. Lids and lashes normal. Conjunctiva and sclera are non-icteric and not injected. Cornea within normal limits. Periorbital areas with no swelling, redness, or edema. Cardiovascular: Regular rate and rhythm. No pulse deficits. Respiratory: No increased work of breathing, no retractions or nasal flaring. Abdomen/GI: soft, + mild RUQ tenderness, neg tyler Skin: Warm, dry with normal turgor. Normal color with no rashes, no lesions, and no evidence of cellulitis. MS/ Extremity: Pulses equal, no cyanosis. Neurovascular intact. Full, normal range of motion. Equal circumference. Vital Signs: 16:18 BP 121 / 91; Pulse 79; Resp 18; Temp 97.3(TE); Pulse Ox 100% on R/A; Weight 61.23 kg; hj Height 5 ft. 2 in. (157.48 cm); Pain 8/10; 17:18 BP 118 / 79; Pulse 70; Resp 16; Temp 98.4(O); Pulse Ox 98% on R/A; Pain 7/10; rb1 18:15 BP 112 / 75; Pulse 64; Resp 17; Temp 98.4(O); Pulse Ox 100% on R/A; Pain 7/10; rb1 19:42 BP 108 / 84; Pulse 67; Resp 17 S; Pulse Ox 99% on R/A; jd3 16:18 Body Mass Index 24.69 (61.23 kg, 157.48 cm) hj MDM: 16:19 Patient medically screened. rn 17:38 Differential diagnosis: cholecystitis, Cholelithiasis, gastritis, gastroesophageal rn reflux disease, non-specific abd pain, pancreatitis. Data reviewed: vital signs, nurses notes, lab test result(s), radiologic studies, ultrasound, and as a result, I will admit patient. Counseling: I had a detailed discussion with the patient and/or guardian regarding: the historical points, exam findings, and any diagnostic results supporting the discharge/admit diagnosis, lab results, radiology results, the need for further work-up and treatment in the hospital. Response to treatment: the patient's symptoms have mildly improved after treatment, and as a result, I will admit patient. Admission orders: after a detailed discussion of the patient's condition and case, the admit orders are written by me. ED course: Pt with elevated alk phos, normal gallbladder u/s, but story very suspicious for gallbladder pathology. Needs HIDA scan to further investigate, given severe pain, will admit to Dr. Muller, who agrees to take patient to his service. . 05/08 16:20 Order name: CBC with Diff; Complete Time: 17:29 rn 05/08 16:20 Order name: Basic Metabolic Panel; Complete Time: 17:29 rn 05/08 16:20 Order name: US Abdomen Limited; Complete Time: 18:32 rn 05/08 16:20 Order name: LFT's; Complete Time: 17:29 rn 05/08 16:20 Order name: Lipase; Complete Time: 17:29 rn 05/08 16:20 Order name: IV Start; Complete Time: 16:51 rn Administered Medications: 18:50 Drug: Phenergan 12.5 mg Route: IVP; Site: left antecubital; rb1 19:50 Follow up: Response: No adverse reaction jd3 18:50 Drug: morphine 4 mg Route: IVP; Site: left antecubital; rb1 19:50 Follow up: Response: No adverse reaction; RASS: Alert and Calm (0) jd3 Disposition: 05/08/19 17:46 Hospitalization ordered by Dean Muller for Observation. Preliminary diagnosis are Biliary colic, Intractable pain. - Bed requested for Telemetry/MedSurg (observation). - Status is Observation. jd3 - Condition is Stable. - Problem is an acute exacerbation. - Symptoms have improved. UTI on Admission? No Signatures: Dispatcher [employer] EDMS Maricarmen Sterling RN RN Sky Rizzo MD MD rn Joaquin, Henry RN VINNIE Kelley Valdez RN RN rb1 Marie Bill RN RN tw2 Shaq Galdamez RN RN jd3 Corrections: (The following items were deleted from the chart) 18:28 17:46 Hospitalization Ordered by Dean Muller MD for Observation. Preliminary dw diagnosis is Biliary colic; Intractable pain. Bed requested for Telemetry/MedSurg (observation). Status is Observation. Condition is Stable. Problem is an acute exacerbation. Symptoms have improved. UTI on Admission? No. rn 20:22 18:28 05/08/2019 17:46 Hospitalization Ordered by Dean Muller MD for Observation. jd3 Preliminary diagnosis is Biliary colic; Intractable pain. Bed requested for Telemetry/MedSurg (observation). Status is Observation. Condition is Stable. Problem is an acute exacerbation. Symptoms have improved. UTI on Admission? No. dw
[2019-05-08] MEDS ORDERED: PROMETHAZINE 25 MG/ML VIAL ONE (18:37)
[2019-05-08] MEDS ORDERED: MORPHINE 4 MG/ML SYR ONE (18:38)
[2019-05-08] MEDS ORDERED: ONDANSETRON 4 MG/2 ML VIAL IV PRN (20:28)
[2019-05-08 20:44] VITALS: BMI 26.2
[2019-05-08] MEDS: D5 0.45 NS 1,000 ML IV SCH (21:00)
[2019-05-08] MEDS: PROMETHAZINE 25 MG/ML VIAL IV PRN (23:25)
[2019-05-08] MEDS: MORPHINE 4 MG/ML SYR IV PRN (23:25)
[2019-05-09] MEDS: D5 0.45 NS 1,000 ML IV SCH ×2 (04:09→20:28)
[2019-05-09 04:40] LABS: Absolute Lymphocytes (CBC) 2.7 K/uL (0.7-4.9); Lymphocytes % 47.4 % (15.3-44.8); MPV 9.2 fL (7.6-11.3); RBC Red Blood Cell Count 3.94 M/uL (3.86-4.86)
[2019-05-09 06:12] LABS: Albumin 3.2 g/dL (3.4-5.0); Bilirubin Direct 0.1 mg/dL (0-0.2); Bilirubin Total 0.4 mg/dL (0.2-1.0); Potassium 3.6 mmol/L (3.5-5.1); Protein, Total 5.9 g/dL (6.4-8.2)
[2019-05-09] MEDS: PROMETHAZINE 25 MG/ML VIAL IV PRN ×3 (09:02→23:59)
[2019-05-09] MEDS: MORPHINE 4 MG/ML SYR IV PRN (09:03)
--- NOTE | 2019-05-09 09:33 | RAD REPORT ---
EXAM DESCRIPTION: NM - Hepatobiliary System W/ Ph - 05/09/2019 9:16 am CLINICAL HISTORY: biliary colic Abdominal pain COMPARISON: No comparisons TECHNIQUE: The patient was administered 6.3 mCi Tc99m Choletec. Imaging of the right upper quadrant was performed initially for up to 60 minutes. Gallbladder ejection fraction determination was then performed utilizing synthetic 1.3 mgm CCK over a slow 30 minute infusion. FINDINGS: Normal hepatic uptake and excretion with appropriate clearance of background blood pool ac tivity. Normal visualization of biliary and small bowel activity. Gallbladder visualizes within normal time limits. The calculated ejection fraction is 35% (normal gre ater than 35%). Subjective pain reported by the patient: Pre-procedure - nausea During or subsequent to synthetic CCK infusion - significant pain 04/28 IMPRESSION: Patient cystic duct and patent sphincter of Oddi. No delay in visualization of the gallb ladder, biliary tree, or duodenum. Ejection fraction is 35% (normal greater than 35%). Subjective patient pain assessment as detailed above.
[2019-05-09] MEDS ORDERED: ONDANSETRON 4 MG/2 ML VIAL ONE (13:50)
[2019-05-09] MEDS ORDERED: GLYCOPYRROLATE 0.2 MG/ML SYR ONE ×2 (13:50→13:53)
[2019-05-09] MEDS ORDERED: LIDOCAINE 2% MPF 5 ML VIAL ONE (13:50)
[2019-05-09] MEDS ORDERED: PROPOFOL 200 MG/20 ML VIAL IV ONE (13:50)
[2019-05-09] MEDS ORDERED: FENTANYL CITR 250 MCG/5 ML ONE (13:51)
[2019-05-09] MEDS ORDERED: NEOSTIGMINE 1 MG/ML -10 ML VIAL ONE (13:52)
[2019-05-09] MEDS ORDERED: ROCURONIUM 50 MG/5 ML VIAL IV ONE (13:52)
[2019-05-09] MEDS ORDERED: MIDAZOLAM HCL 2 MG/2 ML INJ ONE (13:54)
[2019-05-09] MEDS ORDERED: Ringers Lactate 1,000 ML IV ONE (14:13)
[2019-05-09] MEDS ORDERED: CEFOXITIN/SWI 1gm 1 GM/10 ML SYR IVP ONE (14:15)
--- NOTE | 2019-05-09 15:14 | P.HP ---
Date of Service: 05/09/19 PC: This 44-year-old female presents emergency room with severe right upper quadrant abdominal pain for diagnosis and treatment. HPC: Patient has had this pain off and on for the last few months. She complains of pain up underneath the rib cage, radiating into her back. I had seen her before for acute appendicitis. She also complains of a epigastric hernia. Yesterday however the pain became very severe, will radiating to her back, and she could no longer stand it to the emergency room were in ultrasound was performed. It was negative. This may be however complaints of persistent discomfort and was admitted for observation pain control. This morning we obtained a HIDA scan which shows ejection fraction of 35%. This is consistent with biliary colic that she has been experiencing. PSHx: Previous appendectomy SOC: Allergic to SYS REVIEW: No cough, wheeze, shortness of breath. No chest pain or palpitations. No urinary complaints. O/E awake alert stable HEENT: Not jaundiced Chest: Clear ABD: Mild right upper quadrant tenderness LOCO: Intact DATA: HIDA scan shows ejection fraction approximately 35%, consistent with biliary dyskinesia. IMPRESSION: Chronic cholecystitis, biliary dyskinesia PLAN: I will take to the operating room for laparoscopic possible open cholecystectomy with cholangiogram. The risks of this procedure have been discussed. The possibility of bleeding, infection, injury to surrounding structures were explained. The possibility of damage to the bile ducts was outlined. The need for an open and/or further surgeries and procedures was described. She understands and wants us to proceed.
--- NOTE | 2019-05-09 16:18 | P.OP ---
Preoperative diagnosis: Cholecystitis with biliary dyskinesia Postoperative diagnosis: Cholecystitis with biliary dyskinesia Primary procedure: Laparoscopic cholecystectomy Secondary procedure: Cholangiogram Other procedure(s): Suture repair of ventral Hernia Anesthesia: General Estimated blood loss: Less than 10 cc Specimen: 1 gallbladder and contents Operative Technique: The patient was brought to the operating room and placed supine on the table. After the induction of adequate general endotracheal anesthesia, the area of the abdomen was prepped with a DuraPrep solution, and she was draped in usual aseptic manner. The umbilicus was injected with 0.25% Marcaine. A skin incision was made. The Visiport was now used to enter the peritoneal cavity and created pneumoperitoneum to approximately 12 mm of mercury. Under direct vision a 5 mm trocar was placed in the upper midline. This is the area with the patient's complaints of pain in discomfort and there is also a facile defect in this area. We could actually see it on transillumination of the peritoneal cavity. 2 other 5 mm trocars were placed on the right lateral side of the abdomen after she had been placed in reverse Trendelenburg and rolled to the left. We now could visualize the right upper quadrant. We could a chronically distended gallbladder that was mildly injected. Any adhesions of the omentum were removed from the serosal surface. A grasper was placed on the fundus. Another down by Pako's pouch. Applying lateral traction we were able to diet dissect and expose the cystic duct and artery. Having obtained the critical view. The artery was clipped and divided. A clip placed between the gallbladder and the cystic ducts. An opening was now made into the cystic duct through which we obtained a normal intraoperative cholangiogram. The catheter was removed. Clips were placed on the distal portion of the cystic duct. The duct. The gallbladder was dissected free from the liver bed, placed into an Endo -Catch, and brought out through the umbilical trocar site. Attention was turned towards the upper midline trocar site. Gentle dissection allowed us to place a finger tip down on the facile defect in this area. Using Endo Close the fascia was approximated to bring the 2 edges together. The suture was tied. The Endo Close was also used to approximate the umbilical trocar defect. At this point the abdomen was inspected to ensure adequate hemostasis. Irrigating fluid was aspirated from the peritoneal cavity. Sutures were now tied, the trocars removed , and lara were applied to the skin. She was stable when sent to the recovery room. Needle sponge instrument count were correct. Complications: None Transferred to: Recovery Room Condition: Good
[2019-05-09] MEDS ORDERED: MEPERIDINE HCL 25 MG/0.5 ML ONE (16:29)
[2019-05-09 21:20] VITALS: O2SAT 98
[2019-05-10] MEDS: D5 0.45 NS 1,000 ML IV SCH ×3 (03:38→05:47)
[2019-05-10] MEDS: PROMETHAZINE 25 MG/ML VIAL IV PRN (05:45)
--- NOTE | 2019-05-10 07:04 | RAD REPORT ---
EXAM DESCRIPTION: RAD - Cholangiogram Oper-Xray Or - 05/09/2019 9:17 pm FINDINGS: Two portable C-arm views were submitted from intraoperative cholangiogram. No duct stone, stricture or other intraluminal filling defects identified in the biliary tree on the submitted images. Full assessment is limited when only selected images are available. Fluoro time was 0.2 minutes.
[2019-05-10 11:11] LABS: Urine Appearance CLEAR; Urine Bilirubin NEGATIVE (NEG); Urine Blood NEGATIVE (NEG); Urine Color YELLOW; Urine Glucose NEGATIVE (NEG); Urine Protein NEGATIVE (NEG); Urine Specific Gravity <=1.005 (1.005-1.030); Urine Urobilinogen 0.2 mg/dL (0.2-1.0); Urine pH 7.5 (5.0-7.0)
[2019-05-10 11:19] LABS: Urine Microscopic Reflex NO UMIC
[2019-05-10] MEDS ORDERED: ACETAMINOPHEN 500 MG TAB PO PRN (11:47)
[2019-05-10 12:17] VITALS: BP 111/65; TEMP 98.9
== END 2019-05-10 13:12 | disposition home or self-care (01) | DRG 419 ==
LOC: ER 16:08 → ERHOLD 17:49 → 4TH 20:04 → OBSVTOIN 05-10 07:56
PROVIDERS: ADMIT Surgery; ATTEND Surgery
PROC: BF00YZZ Plain Radiography of Bile Ducts using Other Contrast (ICD-10-PCS; 2019-05-09)
PROC: 0FT44ZZ Resection of Gallbladder, Percutaneous Endoscopic Approach (ICD-10-PCS; principal; 2019-05-09 13:15)
DX: K81.1 Chronic cholecystitis (principal); K82.8 Other specified diseases of gallbladder
CPT/HCPCS: 36415; 74300; 76705; 78227; 80048; 80076; 81003; 83690; 85025; 87077; 87086; 87088; 87186; 88304; 96374; 96375; 99285; A9537; G0378; J2175; J2250; J2405; J2550; J2704; J2710; J2805; J3010

== ENCOUNTER 2019-05-14 17:12 | Inpatient (IN) | payer SELFPAY ==
--- OUTSIDE RECORDS SUMMARY | 2019-05-14 17:13 | XMS REPORT ---
:1975 [facility] Address [address] [place] [address] [address] [place] [address] Care Team Providers Name Role Phone Fly Hein Unavailable Unavailable Divya Chatterjee Unavailable Unavailable Problems This patient has no known problems. Allergies, Adverse Reactions, Alerts This patient has no known allergies or adverse reactions. Medications This patient has no known medications. Encounters Start End Encounter Admission Attending Care Care Encounter Date/Time Date/Time Type Type Clinicians Facility Department ID 2017-01-26 2017-01-26 Outpatient ASHLEY Hein [id number] 10:49:00 10:49:00 Fly 2017-01-26 2017-01-26 Outpatient ASHLEY Chatterjee [id number] 10:49:00 10:49:00 Divya 2017-01-11 2017-01-11 Outpatient ASHLEY Hein [id number] 13:44:00 13:44:00 Fly
[2019-05-14] MEDS ORDERED: PROMETHAZINE 25 MG/ML VIAL ONE (17:28)
[2019-05-14] MEDS ORDERED: FAMOTIDINE 20 MG/2 ML VIAL IV ONE (17:29)
[2019-05-14] MEDS ORDERED: MORPHINE 4 MG/ML SYR ONE ×2 (17:29→21:42)
[2019-05-14] MEDS ORDERED: NA CHLORIDE 0.9% 1,000 ML ONE ×2 (17:29→19:20)
[2019-05-14 18:07] LABS: Absolute Lymphocytes (CBC) 1.5 K/uL (0.7-4.9); Basophils % 0.4 % (0-1.3); Lymphocytes % 11.3 % (15.3-44.8); MPV 8.7 fL (7.6-11.3); RBC Red Blood Cell Count 3.94 M/uL (3.86-4.86)
[2019-05-14] MEDS ORDERED: HYDROMORPHONE HCL 1 MG/ML INJ ONE (18:13)
[2019-05-14] MEDS ORDERED: METOCLOPRAMIDE 10 MG/2mL INJ ONE ×2 (18:13→19:19)
[2019-05-14 18:26] LABS: Protime INR 1.13
[2019-05-14 18:28] LABS: Albumin 3.1 g/dL (3.4-5.0); Bilirubin Direct 0.7 mg/dL (0-0.2); Bilirubin Total 1.4 mg/dL (0.2-1.0); Magnesium 2.2 mg/dL (1.8-2.4); Potassium 3.5 mmol/L (3.5-5.1)
[2019-05-14] MEDS ORDERED: KETOROLAC 30 MG/ML INJ ONE (18:58)
[2019-05-14] MEDS ORDERED: PANTOPRAZOLE 40 MG INJ ONE (19:19)
--- NOTE | 2019-05-14 19:46 | RAD REPORT ---
EXAM DESCRIPTION: CT - Abdomen Pelvis W Contrast - 05/14/2019 7:28 pm CLINICAL HISTORY: ABD PAIN COMPARISON: CT study September 2018 TECHNIQUE: Biphasic, helical CT imaging of the abdomen and pelvis was performed following 100 ml non -ionic IV contrast. Oral contrast given. All CT scans are performed using dose optimization technique as appropriate and may include automated exposure control or mA/KV adjustment according to patient size. FINDINGS: Minimal bilateral pleural effusions are present with posterior gutter atelectasis. The liver, spleen, and pancreas show no suspicious findings. Cholecystectomy clips are present. Stran ding is present in the gallbladder fossa. Cholecystectomy changes are new from the September examinatio n. Skin lara are present in a pattern typical for laparoscopic cholecystectomy. May 09 imaging shows intraoperative cholangiogram procedure. The fluid and stranding at the gallbladder fossa and a small amount of ascites in the peritoneal cavity within normal limits for recent surgery. Skin staple s are still in place. Fluid in the dependent portion the pelvis also within limits of normal. Symmetric renal function is seen with no hydronephrosis or suspicious renal mass. No pyelonephritis o r acute parenchymal process. No bladder abnormalities. No adrenal abnormalities. No gastric dilatation or wall thickening. A few prominent small bowel loops are present likely some c omponent of ileus related to the surgery. Moderate stool volume is seen in the transverse colon cecum and ascending colon. Descending, sigmoid and rectum are decompressed. No obstructing mass. An acute colon process is not seen. No hernia, mass or bulky lymphadenopathy. No suspicious bony findings. IMPRESSION: Fluid and stranding changes in the peritoneal cavity are all within normal limits for th e recent laparoscopic cholecystectomy. No abscess or other surgical complication seen. Moderate stool volume is present filling the colon from cecum to splenic flexure. Left-side of the co priyank is otherwise decompressed with no acute colon process seen. A few prominent proximal small bowel loops are present not clearly outside of normal range but possib ly a minimal ileus component.
--- NOTE | 2019-05-14 20:17 | ER ---
Nurse's Notes [facility] Name: Marta Barraza Age: 44 yrs Sex: Female : 1975 Arrival Date: 05/14/2019 Time: 17:14 Bed 6 Private MD: Herb Murguia R Diagnosis: Upper abdominal pain, unspecified-post cholecystectomy Presentation: 05/14 17:14 Presenting complaint: Patient states: i have this abd pain and back pain that started hj Tuesday, went to [facility] via ambulance was told it was constipation and gas and today its getting worse; reports fever and vomiting;. Transition of care: patient was not received from another setting of care. Onset of symptoms was May 14, 2019. Risk Assessment: Do you want to hurt yourself or someone else? Patient reports no desire to harm self or others. Initial Sepsis Screen: Does the patient meet any 2 criteria? No. Patient's initial sepsis screen is negative. Does the patient have a suspected source of infection? No. Patient's initial sepsis screen is negative. Care prior to arrival: None. 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 - Social history:: Smoking status: . - Ebola Screening: : Patient denies travel to an Ebola-affected area in the 21 days before illness onset. Screenin:26 Abuse screen: Denies threats or abuse. Nutritional screening: No deficits noted. tw2 Tuberculosis screening: No symptoms or risk factors identified. Fall Risk None identified. Assessment: 17:44 General: Appears uncomfortable, Behavior is calm, cooperative, appropriate for age. tw2 Pain: Complains of pain in abdomen. Neuro: Level of Consciousness is awake, alert, obeys commands, Oriented to person, place, time, situation. Cardiovascular: Heart tones S1 S2 Patient's skin is warm and dry. Respiratory: Airway is patent Respiratory effort is even, unlabored, Respiratory pattern is regular, symmetrical, Breath sounds are clear bilaterally. GI: Bowel sounds present X 4 quads. Abd is soft X 4 quads Reports lower abdominal pain, upper abdominal pain, pt reports gallbladder was removed 1 week ago. GI: Reports bloating, constipation, nausea. : No signs and/or symptoms were reported regarding the genitourinary system. EENT: No signs and/or symptoms were reported regarding the EENT system. Derm: No signs and/or symptoms reported regarding the dermatologic system. Musculoskeletal: Range of motion: intact in all extremities. 18:22 Reassessment: No changes from previously documented assessment. Patient and/or family tw2 updated on plan of care and expected duration. Pain level reassessed. Patient is alert, oriented x 3, equal unlabored respirations, skin warm/dry/pink. Patient states symptoms have not improved. 19:52 General: Appears comfortable, Behavior is calm, drowsy. Neuro: Level of Consciousness ak1 is awake, alert, obeys commands. Cardiovascular: No deficits noted. Respiratory: Airway is patent Respiratory effort is unlabored. GI: Bowel sounds present X 4 quads. Abd is soft X 4 quads Reports lower abdominal pain, upper abdominal pain, bloating, constipation, nausea. : No signs and/or symptoms were reported regarding the genitourinary system. EENT: No signs and/or symptoms were reported regarding the EENT system. Derm: No signs and/or symptoms reported regarding the dermatologic system. Musculoskeletal: No signs and/or symptoms reported regarding the musculoskeletal system. 20:35 Reassessment: pt easily to wake. pt informed of admission status and NPO. ak1 21:45 Reassessment: Patient appears in no apparent distress at this time. Patient is alert, rr5 oriented x 3, equal unlabored respirations, skin warm/dry/pink. complaining of left shoulder pain. pain score 8/10. ED provider aware with order made and carried out. 22:26 Reassessment: Patient appears in no apparent distress at this time. Patient and/or rr5 family updated on plan of care and expected duration. Pain level reassessed. Patient is alert, oriented x 3, equal unlabored respirations, skin warm/dry/pink. transferred to medical surgical floor. vitally stable no complaints made. Vital Signs: 17:16 BP 158 / 93; Pulse 78; Resp 18; Temp 98.1(O); Pulse Ox 96% on R/A; Weight 61.23 kg; hj Height 5 ft. 2 in. (157.48 cm); Pain 10/10; 18:22 BP 148 / 93; Pulse 90; Resp 17; Pulse Ox 95% on R/A; Pain 10/10; tw2 19:20 BP 121 / 81; Pulse 85; Resp 16; Temp 98; Pulse Ox 99% ; rr5 20:00 BP 119 / 69; Pulse 83; Resp 17; Pulse Ox 100% ; rr5 21:00 BP 125 / 75; Pulse 88; Resp 19; Pulse Ox 99% ; rr5 21:47 BP 128 / 79; Pulse 80; Resp 17; Pulse Ox 99% on R/A; Pain 8/10; rr5 17:16 Body Mass Index 24.69 (61.23 kg, 157.48 cm) hj ED Course: 17:14 Patient arrived in ED. mr 17:14 Herb Murguia MD is Private Physician. mr 17:15 Triage completed. hj 17:16 Arm band placed on right wrist. hj 17:18 Lonny Escobedo PA is PHCP. cp 17:18 Lonny Harper MD is Attending Physician. cp 17:26 Bed in low position. Call light in reach. tw2 17:30 Inserted saline lock: 22 gauge in left antecubital area, using aseptic technique. Blood tw2 collected. 17:42 Marie Bill, RN is Primary Nurse. tw2 19:16 Report given to VINNIE Rg. tw2 19:28 CT Abd/Pelvis - PO and IV Contrast In Process Unspecified. EDMS 20:05 Chandra Hassan MD is Attending Physician. cp 20:14 Dean Muller MD is Hospitalizing Provider. cp 21:24 No provider procedures requiring assistance completed. Patient admitted, IV remains in ak1 place. Administered Medications: 17:28 CANCELLED (pt allergic): Zofran 4 mg IVP once; over 2 minutes tw2 17:30 Drug: NS 0.9% 1000 ml Route: IV; Rate: 1 bolus; Site: left antecubital; tw2 21:03 Follow up: IV Status: Completed infusion; IV Intake: 1000ml ak1 17:32 Drug: Phenergan 25 mg Route: IVP; Site: left antecubital; tw2 18:10 Follow up: Response: No adverse reaction; Nausea unchanged sg 17:34 Drug: morphine 4 mg Route: IVP; Site: left antecubital; tw2 18:10 Follow up: Response: No adverse reaction; Pain is unchanged, physician notified; RASS: sg Alert and Calm (0) 17:40 Drug: Pepcid 20 mg Route: IVP; Site: left antecubital; tw2 18:10 Follow up: Response: No adverse reaction sg 18:15 Drug: Reglan 10 mg Route: IVP; Site: left antecubital; tw2 19:08 Follow up: Response: No adverse reaction; Nausea is decreased tw2 18:18 Drug: Dilaudid 1 mg Route: IVP; Site: left antecubital; tw2 19:08 Follow up: Response: No adverse reaction; Pain is unchanged, physician notified; RASS: tw2 Alert and Calm (0) 19:06 Drug: TORadol 30 mg Route: IVP; Site: left antecubital; sg 20:33 Follow up: Response: No adverse reaction ak1 19:06 Not Given (Physician Discretion): TORadol 30 mg IVP once sg 19:40 Drug: Reglan 10 mg Route: IVP; Site: left antecubital; rr5 20:33 Follow up: Response: No adverse reaction ak1 19:42 Drug: ProTONIX 40 mg Route: IVP; Site: left antecubital; rr5 20:33 Follow up: Response: No adverse reaction ak1 20:32 Drug: NS 0.9% 1000 ml Route: IV; Rate: 125 ml/hr; Site: left antecubital; ak1 22:29 Follow up: Response: No adverse reaction; IV Status: Infusion continued upon admission; rr5 IV Intake: 250ml 20:32 Drug: Mefoxin 1 grams Route: IVPB; Infused Over: 30 mins; Site: left antecubital; ak1 20:33 Follow up: IV Status: Completed infusion; IV Intake: 10ml ak1 20:33 Drug: metroNIDAZOLE 500 mg Volume: 100 ml; Route: IVPB; Infused Over: 30 mins; Site: ak left antecubital; 21:03 Follow up: IV Status: Completed infusion; IV Intake: 100ml ak1 21:46 Drug: morphine 4 mg {Note: RASS 0.} Route: IVP; Site: left antecubital; rr5 22:29 Follow up: Response: No adverse reaction rr5 22:29 Follow up: Response: RASS: Alert and Calm (0) rr5 Intake: 20:33 IV: 10ml; Total: 10ml. ak1 21:03 IV: 100ml; Total: 110ml. ak1 21:03 IV: 1000ml; Total: 1110ml. ak1 22:29 IV: 250ml; Total: 1360ml. rr5 Outcome: 20:15 Decision to Hospitalize by Provider. cp 21:24 Admitted to Med/surg accompanied by tech, via wheelchair, with chart. ak1 21:24 Condition: stable 21:24 Instructed on the need for admit. 22:28 Patient left the ED. rr5 Signatures: Dispatcher [employer] EDMS Fede Bedolla, RN VINNIE Silvia Cerna mr GrayPaula mcelroy RN RN ak1 Kobi Lowery RN Lonny Rocha PA PA cp Marie Bill RN RN tw2 Arcenio Lester, RN RN rr5 Corrections: (The following items were deleted from the chart) 17:17 17:16 Pulse 78bpm; Resp 18bpm; Pulse Ox 96% RA; Temp 98.1F Oral; 61.23 kg; Height 5 ft. hj 2 in.; BMI: 24.6; Pain 10/10; hj
--- NOTE | 2019-05-14 20:17 | EDPHYS ---
Physician Documentation [facility] Name: Marta Barraza Age: 44 yrs Sex: Female : 1975 Arrival Date: 05/14/2019 Time: 17:14 Bed 6 Private MD: Herb Murguia R ED Physician Chandra Hassan HPI: 05/14 17:35 This 44 yrs old Female presents to ER via Ambulatory with complaints of cp Abdominal Pain, Back Pain. 17:35 The patient presents with abdominal pain in the epigastric area, in the right upper cp quadrant. Onset: The symptoms/episode began/occurred last week, Tuesday. Associated signs and symptoms: Pertinent positives: nausea and vomiting, anorexia, Pertinent negatives: blood in stools, chest pain, constipation, diarrhea, dysuria, fever, headache, shortness of breath, vomiting blood. The symptoms are described as waxing/waning. 17:35 Patient reports having cholecystectomy last week by DR Muller. Pain started last cp Tuesday. Patient reports she was seen at [facility] and diagnosed with constipation. Patient reports regular bowel movement and passing gas. 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 - Social history:: Smoking status: . - Ebola Screening: : Patient denies travel to an Ebola-affected area in the 21 days before illness onset. ROS: 17:40 Constitutional: Negative for body aches, chills, fever, poor PO intake. cp 17:40 Eyes: Negative for injury, pain, redness, and discharge. cp 17:40 ENT: Negative for drainage from ear(s), ear pain, sore throat, difficulty swallowing, difficulty handling secretions. 17:40 Cardiovascular: Negative for chest pain, edema, palpitations. 17:40 Respiratory: Negative for cough, shortness of breath, wheezing. 17:40 Abdomen/GI: Positive for abdominal pain, nausea and vomiting, Negative for diarrhea, constipation, black/tarry stool, rectal bleeding. 17:40 Back: Negative for pain at rest, pain with movement. 17:40 : Negative for urinary symptoms. 17:40 Skin: Negative for cellulitis, rash. 17:40 Neuro: Negative for altered mental status, headache, weakness. 17:40 All other systems are negative. Exam: 17:45 Constitutional: The patient appears in no acute distress, alert, awake, non-toxic, well cp developed, well nourished, uncomfortable. 17:45 Head/Face: Normocephalic, atraumatic. cp 17:45 Eyes: Periorbital structures: appear normal, Conjunctiva: normal, no exudate, no injection, Sclera: no appreciated abnormality, Lids and lashes: appear normal, bilaterally. 17:45 ENT: External ear(s): are unremarkable, Nose: is normal, Mouth: Lips: moist, Oral mucosa: pink and intact, moist, Posterior pharynx: is normal, airway is patent, no erythema, no exudate. 17:45 Neck: ROM/movement: is normal, is supple, without pain, no range of motions limitations, no nuchal rigidity. 17:45 Chest/axilla: Inspection: normal, Palpation: is normal, no crepitus, no tenderness. 17:45 Cardiovascular: Rate: normal, Rhythm: regular, Edema: is not appreciated, JVD: is not appreciated. 17:45 Respiratory: the patient does not display signs of respiratory distress, Respirations: normal, no use of accessory muscles, no retractions, no splinting, no tachypnea, labored breathing, is not present, Breath sounds: are clear throughout, no decreased breath sounds, no stridor, no wheezing. 17:45 Abdomen/GI: Inspection: scar(s), surgical scars appear to be healing well, Bowel sounds: active, all quadrants, Palpation: soft, in all quadrants, severe abdominal tenderness, in the epigastric area and right upper quadrant, rebound tenderness, is not appreciated, voluntary guarding, is elicited in the epigastric area and right upper quadrant. 17:45 Back: CVA tenderness, is absent. 17:45 Skin: cellulitis, is not appreciated. 17:45 Neuro: Orientation: to person, place \T\ time. Mentation: is normal, Motor: moves all fours, strength is normal. Vital Signs: 17:16 BP 158 / 93; Pulse 78; Resp 18; Temp 98.1(O); Pulse Ox 96% on R/A; Weight 61.23 kg; hj Height 5 ft. 2 in. (157.48 cm); Pain 10/10; 18:22 BP 148 / 93; Pulse 90; Resp 17; Pulse Ox 95% on R/A; Pain 10/10; tw2 19:20 BP 121 / 81; Pulse 85; Resp 16; Temp 98; Pulse Ox 99% ; rr5 20:00 BP 119 / 69; Pulse 83; Resp 17; Pulse Ox 100% ; rr5 21:00 BP 125 / 75; Pulse 88; Resp 19; Pulse Ox 99% ; rr5 21:47 BP 128 / 79; Pulse 80; Resp 17; Pulse Ox 99% on R/A; Pain 8/10; rr5 17:16 Body Mass Index 24.69 (61.23 kg, 157.48 cm) hj MDM: 17:23 Patient medically screened. 18:00 Differential diagnosis: bowel obstruction, gastritis, non-specific abd pain, cp pancreatitis, Ureterolithiasis, urinary tract infection, bowel perforation, choledocholithiasis. 20:05 Data reviewed: vital signs, nurses notes, lab test result(s), radiologic studies, CT cp scan. 20:15 Physician consultation: Dean Muller MD was called at 20:12, was contacted at 20:12, regarding admission, to the telemetry unit. patient's condition. 20:30 Response to treatment: improved, will admit for continued pain control. 05/14 17:25 Order name: Basic Metabolic Panel; Complete Time: 18:37 05/14 18:37 Interpretation: Normal except: GLUC 168; GFR 69. 05/14 17:25 Order name: CBC with Diff; Complete Time: 18:37 05/14 18:37 Interpretation: Normal except: WBC 13.3; PLT 305; LINNEA% 80.4; LYM% 11.3; NEUT A 10.7. 05/14 17:25 Order name: Creatinine for Radiology; Complete Time: 18:37 05/14 17:25 Order name: Hepatic Function; Complete Time: 18:37 05/14 18:37 Interpretation: Normal except: AST 81; ALT 97; ALK 127; BILIT 1.4; BILID 0.7; ALB 3.1; cp GLOB 3.9; A/G 0.8. 05/14 17:25 Order name: Lipase; Complete Time: 18:37 cp 05/14 18:37 Interpretation: LIP 69; Reviewed. cp 05/14 17:25 Order name: Magnesium; Complete Time: 18:37 cp 05/14 17:25 Order name: PT-INR; Complete Time: 20:02 cp 05/14 20:13 Interpretation: Normal except: PT 13.3. cp 05/14 17:25 Order name: Ptt, Activated; Complete Time: 20:02 cp 05/14 21:15 Order name: Basic Metabolic Panel EDMS 05/14 21:15 Order name: Basic Metabolic Panel EDMS 05/14 21:15 Order name: CBC with Automated Diff EDMS 05/14 21:15 Order name: CBC with Automated Diff EDMS 05/14 21:15 Order name: Lipase EDMS 05/14 21:15 Order name: Lipase EDMS 05/14 18:19 Order name: CT Abd/Pelvis - PO and IV Contrast; Complete Time: 20:02 05/14 21:15 Order name: Liver (Hepatic) Function EDMS 05/14 21:15 Order name: Liver (Hepatic) Function EDMS 05/14 21:16 Order name: Hepatobiliary System W/ Ph EDMS 05/14 17:25 Order name: IV Saline Lock; Complete Time: 17:43 cp 05/14 17:25 Order name: Labs collected and sent; Complete Time: 17:43 05/14 19:12 Order name: Monitor; Complete Time: 19:23 05/14 19:12 Order name: EKG; Complete Time: 19:13 05/14 19:12 Order name: EKG - Nurse/Tech; Complete Time: 19:23 cp 05/14 20:16 Order name: NPO; Complete Time: 20:19 05/14 21:15 Order name: NPO EDMS Administered Medications: 17:28 CANCELLED (pt allergic): Zofran 4 mg IVP once; over 2 minutes tw2 17:30 Drug: NS 0.9% 1000 ml Route: IV; Rate: 1 bolus; Site: left antecubital; tw2 21:03 Follow up: IV Status: Completed infusion; IV Intake: 1000ml ak1 17:32 Drug: Phenergan 25 mg Route: IVP; Site: left antecubital; tw2 18:10 Follow up: Response: No adverse reaction; Nausea unchanged sg 17:34 Drug: morphine 4 mg Route: IVP; Site: left antecubital; tw2 18:10 Follow up: Response: No adverse reaction; Pain is unchanged, physician notified; RASS: sg Alert and Calm (0) 17:40 Drug: Pepcid 20 mg Route: IVP; Site: left antecubital; tw2 18:10 Follow up: Response: No adverse reaction sg 18:15 Drug: Reglan 10 mg Route: IVP; Site: left antecubital; tw2 19:08 Follow up: Response: No adverse reaction; Nausea is decreased tw2 18:18 Drug: Dilaudid 1 mg Route: IVP; Site: left antecubital; tw2 19:08 Follow up: Response: No adverse reaction; Pain is unchanged, physician notified; RASS: tw2 Alert and Calm (0) 19:06 Drug: TORadol 30 mg Route: IVP; Site: left antecubital; sg 20:33 Follow up: Response: No adverse reaction ak1 19:06 Not Given (Physician Discretion): TORadol 30 mg IVP once sg 19:40 Drug: Reglan 10 mg Route: IVP; Site: left antecubital; rr5 20:33 Follow up: Response: No adverse reaction ak1 19:42 Drug: ProTONIX 40 mg Route: IVP; Site: left antecubital; rr5 20:33 Follow up: Response: No adverse reaction ak1 20:32 Drug: NS 0.9% 1000 ml Route: IV; Rate: 125 ml/hr; Site: left antecubital; ak1 22:29 Follow up: Response: No adverse reaction; IV Status: Infusion continued upon admission; rr5 IV Intake: 250ml 20:32 Drug: Mefoxin 1 grams Route: IVPB; Infused Over: 30 mins; Site: left antecubital; ak1 20:33 Follow up: IV Status: Completed infusion; IV Intake: 10ml ak1 20:33 Drug: metroNIDAZOLE 500 mg Volume: 100 ml; Route: IVPB; Infused Over: 30 mins; Site: ak left antecubital; 21:03 Follow up: IV Status: Completed infusion; IV Intake: 100ml ak1 21:46 Drug: morphine 4 mg {Note: RASS 0.} Route: IVP; Site: left antecubital; rr5 22:29 Follow up: Response: No adverse reaction rr5 22:29 Follow up: Response: RASS: Alert and Calm (0) rr5 Disposition: 05/14/19 20:15 Hospitalization ordered by Dean Muller for Observation. Preliminary diagnosis is Upper abdominal pain, unspecified - post cholecystectomy. - Bed requested for Telemetry/MedSurg (observation). - Status is Observation. rr5 - Condition is Stable. - Problem is new. - Symptoms have improved. UTI on Admission? No Addendum: 05/26/2019 06:36 Co-signature as Attending Physician, Chandra Hassan MD. g s Signatures: Dispatcher [employer] EDMS Fede Bedolla, RN RN sg Paula Perkins RN RN ak1 Kobi Lowery RN RN hj Lonny Escobedo PA PA cp Garcia, Cindy, RN VINNIE cg Marie Bill RN RN tw2 Chandra Hassan MD MD Arcenio Lester RN RN rr5 Corrections: (The following items were deleted from the chart) 05/14 17:28 17:25 Zofran 4 mg IVP once; over 2 minutes ordered. cp tw2 21:33 20:15 Hospitalization Ordered by Dean Muller MD for Observation. Preliminary cg diagnosis is Upper abdominal pain, unspecified - post cholecystectomy. Bed requested for Telemetry/MedSurg (observation). Status is Observation. Condition is Stable. Problem is new. Symptoms have improved. UTI on Admission? No. 22:28 21:33 05/14/2019 20:15 Hospitalization Ordered by Dean Muller MD for Observation. rr5 Preliminary diagnosis is Upper abdominal pain, unspecified - post cholecystectomy. Bed requested for Telemetry/MedSurg (observation). Status is Observation. Condition is Stable. Problem is new. Symptoms have improved. UTI on Admission? No. cg
[2019-05-14] MEDS ORDERED: METRONIDAZOLE 500mg IVPB 500 MG/100 ML BAG IV ONE (20:25)
[2019-05-14] MEDS ORDERED: CEFOXITIN/SWI 1gm 1 GM/10 ML SYR ONE (20:25)
[2019-05-14 22:48] VITALS: BMI 24.7
[2019-05-14] MEDS: D5 0.45 NS 1,000 ML IV SCH (22:54)
[2019-05-15] MEDS: PROMETHAZINE 25 MG/ML VIAL IV PRN ×4 (04:09→20:08)
[2019-05-15] MEDS: MORPHINE 4 MG/ML SYR IV PRN ×4 (04:09→23:26)
[2019-05-15] MEDS: D5 0.45 NS 1,000 ML IV SCH ×2 (05:19→14:00)
[2019-05-15 06:42] LABS: Urine Appearance CLEAR; Urine Blood NEGATIVE (NEG); Urine Color DK YELLOW; Urine Glucose NEGATIVE (NEG); Urine Protein TRACE (NEG); Urine Specific Gravity >=1.030 (1.005-1.030); Urine pH 5.5 (5.0-7.0)
[2019-05-15 06:47] LABS: Urine Bilirubin 1+ (NEG); Urine Microscopic Reflex ORDER UMIC
[2019-05-15 06:56] LABS: Urine Bacteria 20-50 /HPF (<20); Urine Culture Reflex Order REFLEXED; Urine RBC <5 /HPF (NONE SEEN)
[2019-05-15] MEDS ORDERED: NA CHLORIDE 0.9% 500 ML IV ONE (08:09)
[2019-05-15 08:50] LABS: Absolute Lymphocytes (CBC) 0.9 K/uL (0.7-4.9); Basophils % 0.1 % (0-1.3); Hematocrit 31.9 % (36.0-45.0); Lymphocytes % 7.4 % (15.3-44.8); MPV 8.5 fL (7.6-11.3); RBC Red Blood Cell Count 3.42 M/uL (3.86-4.86)
[2019-05-15 08:59] LABS: Albumin 2.6 g/dL (3.4-5.0); Bilirubin Direct 0.7 mg/dL (0-0.2); Bilirubin Total 1.3 mg/dL (0.2-1.0); Potassium 3.4 mmol/L (3.5-5.1); Protein, Total 6.1 g/dL (6.4-8.2)
--- NOTE | 2019-05-15 09:01 | RAD REPORT ---
EXAM DESCRIPTION: NM - Hepatobiliary System Imagin - 05/15/2019 8:26 am CLINICAL HISTORY: Abdominal pain, recent cholecystectomy COMPARISON: None. TECHNIQUE: The patient was administered approximately 7 mCi Tc99m Choletec . Imaging of the right up per quadrant was performed initially for up to 60 minutes. FINDINGS: Normal visualization of the hepatic parenchyma was seen. There was spill of the radiopharm aceutical visualized in the gallbladder fossa. Radiopharmaceutical then is seen to spread along the i nferior margin of the liver. No visualization of the distal common bile duct or duodenum. Findings telephoned to doctor Michael 8:50 a.m.. IMPRESSION: Bile leak. Leak is first visualized in the gallbladder fossa. This could indicate the patient has duct of Luschk a variant. Leak from the cystic duct is possible. Leak from an injured bile duct is possible but felt to be least of these etiologies. Patient reported no pre-procedure pain, and no pain during or subsequent to synthetic CCK infusion.
[2019-05-15] MEDS: CEFOXITIN/SWI 1gm 1 GM/10 ML SYR IV SCH ×2 (09:26→16:55)
--- NOTE | 2019-05-15 11:21 | EKG ---
Test Date: 2019-05-14 Test Time: 19:20:12 Explosives Engineer: GISSELLE MEASUREMENT RESULTS: Intervals: Rate: 77 IL: 116 QRSD: 86 QT: 370 QTc: 418 [place]: P: 60 IL: 116 QRS: 79 T: 43 INTERPRETIVE STATEMENTS: Normal sinus rhythm Normal ECG Compared to ECG 02/23/2016 10:56:33 No significant changes Electronically Signed On 05-15-19 11:19:19 CDT by German Marion
[2019-05-15] MEDS ORDERED: ACETAMINOPHEN 325 MG TABLET PO ONE (12:25)
[2019-05-15] MEDS ORDERED: GENTAMICIN SULF 80 MG/2ML INJ ONE (14:21)
--- NOTE | 2019-05-15 14:50 | P.HP ---
Date of Service: 05/15/19 PC: This 44-year-old female presents emergency room with severe right upper quadrant abdominal pain for diagnosis and treatment. HPC: Patient underwent a laparoscopic cholecystectomy with intraoperative cholangiogram last week. She had been having increasing pain and discomfort in the right upper quadrant. She underwent her procedure and tolerated it quite well. She was discharged from the hospital. On Tuesday she says she began to feel unwell. Tuesday and Tuesday to revealed an increasing right upper quadrant pain in discomfort. She went to another facility where a CT scan was performed. It showed that she had some constipation. Her pain persisted yesterday and once again she return to our emergency room where CT scan revealed some congestion in fluid collection and did the right lobe of the liver. I was contacted and HIDA scan was ordered The HIDA scan this morning reveals he does have a leak, most likely due to leaking duct in the gallbladder fossa. PMH: Negative PSHx: Previous hysterectomy, appendectomy, tubal ligation, repair of rectocele SOC: Allergic to Zofran SYS REVIEW: No cough, wheeze, shortness of breath. Has had some temperatures in fevers at home over the last 24 hr. No urinary complaints. States initially she flow quite well after her surgery. O/E awake alert HEENT: Not jaundiced Chest: Chest movement equal bilaterally ABD: Tender in the right upper quadrant LOCO: Intact DATA: Elevated white cell, CT scan shows some inflammation of the liver but HIDA scan does show suspicious area of possible leakage in the gallbladder fossa , consistent with a duct of Luschka. IMPRESSION: Postoperative bile leak PLAN: I have discussed this with GI. Dr. Garcia has kindly agreed to see the patient. He may decide to offer ERCP with stent placement. We will keep the patient NPO until that time.
[2019-05-15] MEDS ORDERED: GLUCAGON 1 MG/VIAL ONE (17:04)
[2019-05-15] MEDS ORDERED: PROPOFOL 200 MG/20 ML VIAL IV ONE (17:14)
[2019-05-15] MEDS ORDERED: EPHEDRINE SULF 50 MG/ML VIAL ONE (17:14)
[2019-05-15] MEDS ORDERED: GLYCOPYRROLATE 0.2 MG/ML SYR ONE (17:15)
[2019-05-15] MEDS ORDERED: LIDOCAINE 1% MPF 5 ML VIAL ONE (17:15)
[2019-05-15] MEDS ORDERED: FENTANYL CITR 100 MCG/2 ML ONE (17:35)
--- NOTE | 2019-05-15 18:35 | ENDO RPT ---
[address], [address] ERCP PROCEDURE REPORT EXAM DATE: 05/15/2019 PATIENT NAME: Marta Barraza MR #: [id number] BIRTHDATE: 1975 ATTENDING: Robel Hull Dr STATUS: inpatient - 7 MULTIPLE RESAW OPERATOR: Renetta Wade and Buffy Cerna RN INDICATIONS: The patient is a 44 yr old Female here for an ERCP due to bile duct leak, abdominal pain, abnormal imaging, and abnormal Liver Function Tests PROCEDURE PERFORMED: ERCP with sphincterotomy and ERCP with stent placement MEDICATIONS: Per Anesthesia. CONSENT: The patient understands the risks and benefits of the procedure and understands that these risks include, but are not limited to: sedation, allergic reaction, infection, perforation and/or bleeding. Alternative means of evaluation and treatment include, among others: physical exam, x-rays, and/or surgical intervention. The patient elects to proceed with this endoscopic procedure. DESCRIPTION OF PROCEDURE: During intra-op preparation period all mechanical medical equipment was checked for proper function. Hand hygiene and appropriate measures for infection prevention was taken. Procedure, possible complications, and alternatives including but not limited to the possibility of bleeding, perforation, tear, infection, sepsis, need for surgery, need for blood transfusion, and anesthesia related complications were explained to the patient. In addition, 5-30% incidence of acute pancreatitis as a result of ERCP were explained. After the risks, benefits and alternatives of the procedure were thoroughly explained, Informed was verified, confirmed and timeout was successfully executed by the treatment team. With the patient in left semi-prone position, medications were administered intravenously.The [id number] ([id number]) was passed from the mouth into the esophagus and further advanced from the esophagus into the stomach. From stomach scope was directed to the second portion of the duodenum. Major papilla was aligned with the duodenoscope. The scope position was confirmed fluoroscopically. Rest of the findings/therapeutics are given below. The scope was then completely withdrawn from the patient and the procedure completed. The pulse, BP, and O2 saturation were monitored and documented by the physician and the nursing staff throughout the entire procedure. The patient was cared for as planned according to standard protocol. The patient was then discharged to recovery in stable condition and with appropriate post procedure care. Bile duct leak at side branch off of cystic duct at apex of gallbladder fossa, s/p sphincterotomy and 7-5 biliary stent placement. Gastritis noted in the stomach antrum. ADVERSE EVENT: none IMPRESSIONS: 1. Bile duct leak at side branch off of cystic duct at apex of gallbladder fossa, s/p sphincterotomy and 7-5 biliary stent placement. 2. Gastritis in the stomach antrum RECOMMENDATIONS: antibiotics REPEAT EXAM: Return in 2 month(s) for ERCP. Robel Hull Dr eSigned: Robel Hull Dr 05/15/2019 6:35 PM cc: Dean Muller CPT CODES: ICD9 CODES: PATIENT NAME: Marta Barraza MR#: [id number]
--- NOTE | 2019-05-15 19:07 | RAD REPORT ---
EXAM DESCRIPTION: Fluoroscopy for ERCP CLINICAL HISTORY: ERCP Abdominal pain FINDINGS: Fluoroscopic images submitted from ERCP procedure. Details and diagnostic findings of the procedure are not available. Total fluoroscopy time: 3 minutes 16 seconds
[2019-05-15] MEDS: Ringers Lactate 1,000 ML IV SCH ×2 (20:05→23:26)
[2019-05-15] MEDS ORDERED: PIPERACIL/TAZO 3.375 GM VIAL IV ONE (23:14)
[2019-05-15] MEDS ORDERED: NA CHLORIDE 0.9% 100 ML ONE (23:16)
[2019-05-15] MEDS: PIPER/TAZO/NS 3.375gm 3.375 GM/100 ML BAG IVPB SCH (23:30)
[2019-05-16] MEDS: CEFOXITIN/SWI 1gm 1 GM/10 ML SYR IV SCH ×2 (00:12→09:02)
[2019-05-16] MEDS ORDERED: NA CHLORIDE 0.9% 100 ML ONE (04:44)
[2019-05-16] MEDS: MORPHINE 4 MG/ML SYR IV PRN (05:28)
[2019-05-16] MEDS: PIPER/TAZO/NS 3.375gm 3.375 GM/100 ML BAG IVPB SCH (05:29)
[2019-05-16 05:50] LABS: Absolute Lymphocytes (CBC) 1.4 K/uL (0.7-4.9); Basophils % 0.5 % (0-1.3); Hematocrit 29.4 % (36.0-45.0); MPV 8.7 fL (7.6-11.3); RBC Red Blood Cell Count 3.15 M/uL (3.86-4.86)
[2019-05-16 06:03] LABS: Albumin 2.4 g/dL (3.4-5.0); Bilirubin Total 1.5 mg/dL (0.2-1.0); Magnesium 1.8 mg/dL (1.8-2.4); Phosphorus 2.6 mg/dL (2.5-4.9); Potassium 3.7 mmol/L (3.5-5.1); Protein, Total 5.9 g/dL (6.4-8.2)
[2019-05-16] MEDS ORDERED: PIPER/TAZO/NS 3.375gm 3.375 GM/100 ML BAG IVPB SCH (09:00)
[2019-05-16] MEDS: Ringers Lactate 1,000 ML IV SCH (09:01)
[2019-05-16 10:18] VITALS: BP 120/72; TEMP 98.2
--- NOTE | 2019-05-16 12:59 | P.PN ---
Subjective Date of Service: 05/16/19 Chief Complaint: Bile duct leak, RUQ/SANJUANITA pain, sepsis, tachycardia Subjective: Improving (No abdominal pain, N/V, tachycardia today. She feels well and without complaint after ERCP with bile duct stent yesterday (leak at small aberrant branch of cystic duct at apex of GB fossa).) Review of Systems Unremarkable Physical Examination - Vital Signs Temperature: 98.2 F Blood Pressure: 120/72 Pulse: 94 Respirations: 20 Pulse Ox (%): 94 - Physical Exam General: Alert, In no apparent distress, Oriented x3, Cooperative HEENT: Atraumatic, Normocephalic, PERRLA, EOMI, Sclerae nonicteric Neck: Supple Respiratory: Normal air movement Cardiovascular: Normal pulses Gastrointestinal: Soft and benign, No tenderness, No rebound, No guarding Neurological: Normal speech, Normal strength at 5/5 x4 extr Assessment And Plan - Current Problems (Diagnosis) (1) Bile duct leak Current Visit: Yes Status: Acute Comment: Improved. (2) RUQ abdominal pain Current Visit: Yes Status: Acute Comment: Resolved. (3) Epigastric abdominal pain Current Visit: Yes Status: Acute Comment: Resolved. (4) Nausea & vomiting Current Visit: Yes Status: Acute Comment: Resolved. (5) Fever and chills Current Visit: Yes Status: Acute Comment: Resolved. (6) Sepsis Current Visit: Yes Status: Acute Comment: Improved. - Plan REC: 1) ERCP with stent removal in 2 months 2) ok to discharge 3) GI clinic f/u in 1-2 weeks
[2019-05-16 14:02] VITALS: O2SAT 94
== END 2019-05-16 14:59 | disposition home or self-care (01) | DRG 394 ==
LOC: ER 17:12 → 2ND 22:06 → OBSVTOIN 05-15 11:26
PROVIDERS: ADMIT Surgery; ATTEND Surgery
PROC: 0F798DZ Dilation of Common Bile Duct with Intraluminal Device, Via Natural or Artificial Opening Endoscopic (ICD-10-PCS; principal; 2019-05-15 18:05)
DX: K91.89 Other postprocedural complications and disorders of digestive system (principal); T81.44XA Sepsis following a procedure, initial encounter; K29.70 Gastritis, unspecified, without bleeding
CPT/HCPCS: 36415; 74177; 78226; 80048; 80053; 80076; 81003; 81015; 83690; 83735; 84100; 85025; 85610; 85730; 87077; 87086; 87088; 87186; 93005; 96361; 96365; 96375; 99285; A9537; C1769; C2625; C9113; G0378; J1170; J1580; J1610; J2543; J2550; J2704; J2765; J3010; J7030; Q9967

== ENCOUNTER 2022-11-26 19:03 | Emergency (ER) | payer OTHER, SELFPAY ==
--- OUTSIDE RECORDS SUMMARY | 2022-11-26 19:07 | XMS REPORT | Continuity of Care Document ---
:1975 Author Organization [facility] t Address [address] [facility] [address] [place] [address] Care Team Providers Name Role Phone CHANEL_Mike Attending Clinician Unavailable Merle_Eduard Attending Clinician Unavailable Fly Hein Attending Clinician Unavailable Divya Chatterjee Attending Clinician Unavailable CHANEL_Mike Admitting Clinician Unavailable Merle_Eduard Admitting Clinician Unavailable Payers Payer Name Policy Type Policy Number Effective Date Expiration Date [facility] [id number] [place] WOM[place] [id number] HEALTH PROGRAM (MEDICAID) Problems Condition Condition Condition Status Onset Resolution Last Treating Co mments Source Name Details Category Date Date Treatment Clinician Date Generalize Generalize Problem Active 2019-0 [facility] d anxiety d Anxiety 6-08 da disorder Disorder 00:00: Medica l 00 Group 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 Social History Smoking Status Start Date Stop Date Source Never Smoker [facility] Medications Ordered Filled Start Stop Current Ordering Indication Dosage Frequency Signature Comments Components Source Medication Medication Date Date Medication? Clinician (SIG) Name Name citalopram citalopram No citalopram [facility] 20 mg 20 mg 20 mg da tablet Take tablet Take tablet Medical 1 tablet 1 tablet Take 1 Group every day every day tablet by oral by oral every day route. route. by oral route. diazepam 5 diazepam 5 No diazepam 5 [facility] mg tablet mg tablet mg tablet da TAKE ONE TAKE ONE TAKE ONE Med ical TABLET BY TABLET BY TABLET BY Group MOUTH EVERY MOUTH EVERY MOUTH HALF HOUR HALF HOUR EVERY HALF WHEN WHEN HOUR WHEN INSTRUCTED INSTRUCTED INSTRUCTED moxifloxaci moxifloxaci No moxifloxac [place] n 0.5 % eye n 0.5 % eye in 0.5 % da drops drops eye drops Medical INSTILL ONE INSTILL ONE INSTILL Group DROP INTO DROP INTO ONE DROP AFFECTED AFFECTED INTO EYE(S) FOUR EYE(S) FOUR AFFECTED TIMES A DAY TIMES A DAY EYE(S) FOR ONE FOR ONE FOUR TIMES WEEK WEEK A DAY FOR ONE WEEK oxybutynin oxybutynin No 1 BID oxybutynin [facility] chloride 5 chloride 5 chloride 5 da mg tablet mg tablet mg tablet Medical Take 1 Take 1 Take 1 Group tablet tablet tablet twice a day twice a day twice a by oral by oral day by route. route. oral route. prednisolon prednisolon No prednisolo [place] e acetate 1 e acetate 1 ne acetate da % eye % eye 1 % eye Medical drops,suspe drops,suspe drops,susp Group nsion nsion ension INSTILL ONE INSTILL ONE INSTILL DROP TO DROP TO ONE DROP AFFECTED AFFECTED TO EYE(S) EYE(S) AFFECTED EVERY TWO EVERY TWO EYE(S) HOURS WHILE HOURS WHILE EVERY TWO AWAKE FOR AWAKE FOR HOURS DAY 1, THEN DAY 1, THEN WHILE FOUR TIMES FOUR TIMES AWAKE FOR A DAY FOR A DAY FOR DAY 1, DAYS 2-7 DAYS 2-7 THEN FOUR TIMES A DAY FOR DAYS 2-7 promethazin promethazin No 1 Q6H promethazi [place] e 25 mg e 25 mg ne 25 mg da tablet Take tablet Take tablet Medical 1 tablet 1 tablet Take 1 Group every 6 every 6 tablet hours by hours by every 6 oral route oral route hours by as needed. as needed. oral route as needed. Vyvanse 30 Vyvanse 30 No 1capsul Q1D Vyvanse 30 [facility] mg capsule mg capsule e(s) mg capsule da Take 1 Take 1 Take 1 Medical capsule capsule capsule Group every day every day every day by oral by oral by oral route. route. route. zolpidem 5 zolpidem 5 No zolpidem 5 [facility] mg tablet mg tablet mg tablet da TAKE ONE TAKE ONE TAKE ONE Med ical TABLET BY TABLET BY TABLET BY Group MOUTH ONCE MOUTH ONCE MOUTH ONCE DAILY, DAILY, DAILY, REPEAT WHEN REPEAT WHEN REPEAT INSTRUCTED INSTRUCTED WHEN INSTRUCTED Vital Signs Vital Name Observation Time Observation Value Comments Source BP Diastolic 2021-10-22 00:00:00 91 mm[Hg] [facility] Height 2021-10-22 00:00:00 62 [facility]in_i[facility] BMI (Body Mass 2021-10-22 00:00:00 27 kg/m2 [facility] Medical Index) Group BP Systolic 2021-10-22 00:00:00 133 mm[Hg] [facility] Body Weight 2021-10-22 00:00:00 147.7 [lb_av] [facility] BP Diastolic 2020-02-25 00:00:00 82 mm[Hg] [facility] Height 2020-02-25 00:00:00 62 [in_i] [facility] BMI (Body Mass 2020-02-25 00:00:00 25.8 kg/m2 [facility] Medical Index) Group BP Systolic 2020-02-25 00:00:00 112 mm[Hg] [facility] Body Weight 2020-02-25 00:00:00 140.8 [lb_av] [facility] Procedures Procedure Date / Time Performing Clinician Source Performed MAMMO, screening, 2021-10-20 00:00:00 [facility] bilateral [facility] MAMMO, screening, 2020-02-08 00:00:00 [facility], bilateral [facility] Breast Implants 2016-09-19 00:00:00 [facility] Gastric Bypass 2016-08-19 00:00:00 [facility] Oophorectomy 2012-09-19 00:00:00 [facility] Hysterectomy 2008-09-19 00:00:00 [facility] Tubal Ligation 1999-09-19 00:00:00 [facility] Appendectomy 1994-09-19 00:00:00 [facility] Plan of Care Planned Activity Planned Date Details Comments Source Diagnostic Test 2021-10-22 urinalysis, [facility] 00:00:00 dipstick [code = Group urinalysis, dipstick] Diagnostic Test 2021-10-22 pap, LB + HR HPV [facility] P[facility] 00:00:00 [code = pap, LB + Group HR HPV] Encounters Start End Encounter Admission Attending Care Care Encounter Source Date/Time Date/Time Type Type Clinicians Facility Department ID 2021-12-21 2021-12-21 Outpatient [facility] [id number] [place] 09:23:00 09:23:00 [id number] 2021-10-22 2021-10-22 [id number] 04:12:00 04:12:00 [facility] 2021-10-22 2021-10-22 Chandra MERAZ [place] - [id number] [facility] 00:00:00 00:00:00 Discovery lata Chapa MD: [address] [place] [phone] , Ph. [phone] 2020-07-17 2020-07-17 [place] [id number] [place] 10:32:00 10:32:00 1029 [facility] 2020-03-08 2020-03-08 Outpatient G_Pappas [facility] MMG [id number] [place] 11:28:00 11:28:00 0819 [facility] 2020-02-25 2020-02-25 Outpatient G[facility]appas [facility]G [id number] [place] 11:11:00 11:11:00 0608 [facility] 2020-02-25 2020-02-25 Outpatient G_Pappas [facility] MMG [id number] [place] 11:11:00 11:11:00 0619 [facility] 2020-02-25 2020-02-25 Chandra [facility] [place] - [id number] [facility] 00:00:00 00:00:00 Discovery lata Chapa MD: [address] [place] [phone] , Ph. [phone] 2019-03-26 2019-03-26 Outpatient G_Pappas [facility] G [id number] [place] 11:23:00 11:23:00 0605 Medical Group 2017-01-26 2017-01-26 Outpatient ASHLEY HeinGYKyleigh [id number] [facility] [place] 10:49:00 10:49:00 Fly warren OBGYN 2017-01-26 2017-01-26 Outpatient ASHLEY ChatterjeeGYN [id number] [facility] [place] 10:49:00 10:49:00 Divya warren OBGYN 2017-01-11 2017-01-11 Outpatient ASHLEY HeinGYN [id number] [facility] [place] 13:44:00 13:44:00 Gene OBGYN Results Test Description Test Time Test Comments Results Result Comments Source Urinalysis macro (dipstick) panel - Urine 2021-10-22 15:26:2 7 Test Item Value Reference Range Interpretation Comme nts Leukocytes (test code = Leukocytes) Negative Nitrite (test code = Nitrite) negative Urobilinogen (test code = Urobilinogen) .2 Protein (test code = Protein) Negative pH (test code = pH) 5.5 Blood (test code = Blood) Negative Specific Canones (test code = Specific Canones) 1.015 Ketone (test code = Ketone) Negative Bilirubin (test code = Bilirubin) Negative Glucose (test code = Glucose) Negative Appearance (test code = Appearance) Clear Color (test code = Color) Yellow [facility]stick[facility] - [id number] 08:59:27 Test Item Value Reference Range Interpretation Comments Leukocytes (test code = Leukocytes) Large Nitrite (test code = Nitrite) negative Urobilinogen (test code = .2 Urobilinogen) Protein (test code = Protein) Negative pH (test code = pH) 6.0 Blood (test code = Blood) Negative Specific Canones (test code = 1.030 Specific Canones) Ketone (test code = Ketone) Trace Bilirubin (test code = Bilirubin) Small Glucose (test code = Glucose) Negative Appearance (test code = Appearance) Clear Color (test code = Color) [facility]
--- NOTE | 2022-11-26 20:26 | RAD REPORT ---
[facility]08 [facility] CLINICAL HISTORY: COUGH COMPARISON: CHEST SINGLE VIEW dated 05/18/2012; CHEST PA AND LAT 2 VIEW dated 09/13/2009; CHEST PA AN D LAT 2 VIEW dated 05/31/2009; ABDOMEN ACUTE SERIES dated 04/10/2004 TECHNIQUE: Portable AP view of the chest. FINDINGS: The lungs are clear. No pneumothorax or effusion. The cardiomediastinal contours are unrem arkable. IMPRESSION: No acute cardiopulmonary process.
[2022-11-26 21:10] LABS: Absolute Lymphocytes (CBC) 2.4 K/uL (0.7-4.9); Hematocrit 36.6 % (36.0-45.0); Lymphocytes % 38.4 % (15.3-44.8); MCV 93.6 fL (80-100); MPV 8.1 fL (7.6-11.3); RBC Red Blood Cell Count 3.91 M/uL (3.86-4.86)
[2022-11-26 21:24] LABS: Protime INR 0.96
[2022-11-26 21:32] LABS: ALT/SGPT 22 U/L (13-56); AST/SGOT 18 U/L (15-37); Albumin 3.9 g/dL (3.4-5.0); Alkaline Phosphatase 91 U/L (45-117); BUN Blood Urea Nitrogen 10 mg/dL (7-18); Bicarbonate 29 mmol/L (21-32); Bilirubin Total 0.3 mg/dL (0.2-1.0); Glomerular Filtration Rate 77 ml/min (=/>90); Glucose Level 109 mg/dL (74-106); HDL Cholesterol 42 mg/dL (40-60); LDL Cholesterol, Calculated 91 mg/dL (<130); Lipase 70 U/L (13-75); Magnesium 2.5 mg/dL (1.6-2.4); NT PRO-BNP 52 pg/mL (<125); Potassium 4.6 mmol/L (3.5-5.1); Sodium Level 143 mmol/L (136-145)
[2022-11-26 21:35] LABS: Bilirubin Direct < 0.1 mg/dL (0-0.2); Troponin High Sensitivity < 3.0 pg/mL (<58.9)
[2022-11-26 22:24] LABS: Urine Blood Trace-intact (Negative); Urine Glucose Negative (Negative); Urine Protein Negative (Negative); Urine pH 5.5 (5.0-7.0)
--- NOTE | 2022-11-26 22:33 | RAD REPORT ---
EXAM DESCRIPTION: CT - Chest For Pe Angio - 11/26/2022 10:07 pm CLINICAL HISTORY: ABDOMINAL DISTENTION COMPARISON: Abdomen Pelvis W Contrast dated 11/26/2022; Abdomen Pelvis W Contrast dated 05/14/2019 ; Chest Single View dated 11/26/2022 TECHNIQUE: Thin axial CT images of the chest were obtained following administration of 95 mL Isovue 370 IV contrast. Multiplanar reconstructions, and maximum intensity projection reconstructions were g enerated and reviewed. Exam utilizes a protocol for optimal evaluation of pulmonary arterial tree. All CT scans are performed using dose optimization technique as appropriate and may include automated exposure control or mA/KV adjustment according to patient size. FINDINGS: Pulmonary arteries are normal. No emboli or other suspicious finding. No acute or signific ant aorta findings. No mass or infiltrate in the lung parenchyma. Small right lung nodules the largest in the right lower lobe 5mm in size. No pleural thickening or pleural effusion. No pneumothorax. No abnormal mediastinal or hilar masses or lymphadenopathy seen. No chest wall mass or abnormal axill iary lymphadenopathy. Sequlae of gastric bypass. Bilateral breast implants. IMPRESSION: No evidence of acute central pulmonary emboli. No other acute findings in the chest. Small, benign-appearing right lung nodules as above.
--- NOTE | 2022-11-26 22:40 | RAD REPORT ---
EXAM DESCRIPTION: CT - Abdomen Pelvis W Contrast - 11/26/2022 10:08 pm CLINICAL HISTORY: ABD PAIN COMPARISON: Abdomen Pelvis W Contrast dated 05/14/2019; Abdomen Pelvis W Contrast dated 10/03/2018 ; Abdomen Pelvis W Contrast dated 04/03/2016; Abdomen Pelvis W Contrast dated 03/20/2016; Chest For Pe Angio dated 11/26/2022 TECHNIQUE: Thin cut axial CT imaging of the abdomen and pelvis was performed following intravenous a dministration of 95 Isovue 300. Multiplanar reformats were generated and reviewed. All CT scans are performed using dose optimization technique as appropriate and may include automated exposure control or mA/KV adjustment according to patient size. FINDINGS: CT angiogram of the chest was reported separately. The liver, spleen, and pancreas show no suspicious findings. Gallbladder and biliary tree are also wi thout suspicious finding. Symmetric renal function is seen with no hydronephrosis or suspicious renal mass. No dilated bowel loops or bowel wall thickening. Sequelae of prior gastric bypass. No free air, free fluid or inflammatory stranding. No hernia, mass or bulky lymphadenopathy. The urinary bladder is wit hout significant finding. No suspicious bony findings. Stable sclerotic lesion at the base of the right superior pubic ramus, b enign in appearance, and may represent a bone island or enchondroma. IMPRESSION: No acute intra-abdominal process.
[2022-11-26] MEDS ORDERED: NA CHLORIDE 0.9% 1,000 ML ONE (22:58)
[2022-11-26] MEDS ORDERED: CEFTRIAXONE 1000 MG/VIAL ONE (23:59)
[2022-11-27 07:06] VITALS: TEMP 97.8
[2022-11-27 07:08] VITALS: BP 122/78; O2SAT 99
--- NOTE | 2022-11-29 13:11 | EKG ---
Test Date: 2022-11-26 Test Time: 20:08:52 Twisting Department End Finder: ANJEL MEASUREMENT RESULTS: Intervals: Rate: 76 ME: 134 QRSD: 82 QT: 354 QTc: 398 [place]: P: 71 ME: 134 QRS: 82 T: 85 INTERPRETIVE STATEMENTS: Normal sinus rhythm Normal ECG Compared to ECG 05/14/2019 19:20:12 No significant changes Electronically Signed On 11-29-22 13:06:01 CDT by Hill Arndt
--- NOTE | 2022-12-10 16:04 | ER ---
Nurse's Notes [facility] Name: Marta Barraza Age: 47 yrs Sex: Female : 1975 Arrival Date: 11/26/2022 Time: 19:08 Bed 16 Private MD: Diagnosis: Abdominal pain, Generalized;UTI/ Urinary tract infection, site not specified Presentation: 11/26 20:21 Chief complaint: Patient states: epigastric pain seen by Dr King reports may have kl pancreatitis. Coronavirus screen: Vaccine status: Patient reports receiving the 2nd dose of the covid vaccine. Ebola Screen: Patient negative for fever greater than or equal to 101.5 degrees Fahrenheit, and additional compatible Ebola Virus Disease symptoms. Initial Sepsis Screen: Does the patient meet any 2 criteria? No. Patient's initial sepsis screen is negative. Does the patient have a suspected source of infection? No. Patient's initial sepsis screen is negative. Risk Assessment: Do you want to hurt yourself or someone else? Patient reports no desire to harm self or others. 20:21 Method Of Arrival: Ambulatory 20:21 Acuity: CINDY 3 kl Triage Assessment: 20:23 General: Appears uncomfortable, well groomed, well developed, Behavior is calm, kl cooperative. Pain: Complains of pain in right upper quadrant and left upper quadrant Pain currently is 5 out of 10 on a pain scale. EENT: No deficits noted. Neuro: No deficits noted. Cardiovascular: No deficits noted. Respiratory: No deficits noted. GI: Abd is soft Abdomen is tender to palpation Reports upper abdominal pain, nausea. : No deficits noted. No signs and/or symptoms were reported regarding the genitourinary system. Derm:. Musculoskeletal: No deficits noted. Historical: - Allergies: 20:22 Ondansetron HCl; kl - PMHx: 20:22 Kidney stones; kl - Immunization history:: Adult Immunizations not up to date. - Social history:: Smoking status: Patient denies any tobacco usage or history of. - Family history:: not pertinent. Screenin:24 [facility] ED Fall Risk Assessment (Adult) History of falling in the last 3 months, kl including since admission No falls in past 3 months (0 pts) Confusion or Disorientation No (0 pts) Intoxicated or Sedated No (0 pts) Impaired Gait No (0 pts) Mobility Assist Device Used No (0 pt) Altered Elimination No (0 pt) Score/Fall Risk Level 0 - 2 = Low Risk Oriented to surroundings, Maintained a safe environment. Abuse screen: Denies threats or abuse. Nutritional screening: No deficits noted. Tuberculosis screening: No symptoms or risk factors identified. Assessment: 21:55 Reassessment: Patient appears in no apparent distress at this time. Patient and/or kl family updated on plan of care and expected duration. Pain level reassessed. Patient is alert, oriented x 3, equal unlabored respirations, skin warm/dry/pink. 23:06 Reassessment: Patient appears in no apparent distress at this time. Patient and/or kl family updated on plan of care and expected duration. Pain level reassessed. Patient is alert, oriented x 3, equal unlabored respirations, skin warm/dry/pink. 11/27 01:41 GI: Bowel sounds present X 4 quads. Vital Signs: 11/26 19:56 BP 131 / 84; Pulse 80; Resp 16 S; Temp 97.8(O); Pulse Ox 96% on R/A; as7 20:24 BP 128 / 94; Pulse 72; Resp 18; Pulse Ox 100% on R/A; kl 11/27 01:40 BP 122 / 78; Pulse 65; Resp 18; Pulse Ox 99% on R/A; ED Course: 11/26 19:08 Patient arrived in ED. ja2 19:08 Lonny Harper MD is Attending Physician. jorge luis 20:09 XRAY Chest (1 view) In Process Unspecified. EDMS 20:22 Triage completed. 20:24 No provider procedures requiring assistance completed. Inserted saline lock: 22 gauge kl in right forearm, using aseptic technique. 20:24 Patient has correct armband on for positive identification. 22:09 CT Chest For PE Angio In Process Unspecified. EDMS 22:10 CT Abd/Pelvis - PO and IV Contrast In Process Unspecified. EDMS 11/27 01:22 Annalise King MD is Referral Physician. jorge luis 01:41 IV discontinued, intact, bleeding controlled, No redness/swelling at site. Pressure kl dressing applied. 01:42 EKG completed in triage. Results shown to . Administered Medications: 11/26 21:20 Drug: Pantoprazole IVP 40 mg Route: IVP; Site: left forearm; kl 21:20 Drug: NS 0.9% IV 1000 ml Route: IV; Rate: 1 bolus; Site: left forearm; 11/27 00:55 Follow up: IV Intake: 1000ml 11/26 23:01 Drug: NS 0.9% IV 1000 ml Route: IV; Rate: 1 bolus; Site: right forearm; kl 11/27 00:55 Follow up: IV Intake: 1000ml 11/26 23:57 Drug: Rocephin IV 1 grams Route: IV; Rate: per protocol; Site: right forearm; 11/27 00:55 Follow up: Response: No adverse reaction kl 01:41 Follow up: Response: No adverse reaction kl 00:01 Drug: NS 0.9% IV 500 ml Route: IV; Rate: bolus; Site: right forearm; kl 00:55 Follow up: IV Status: Completed infusion; IV Intake: 500ml kl 00:02 Not Given (Duplicate Order): NS 0.9% IV 1000 ml IV at 125 ml/hr continuous kl Medication: 11/26 20:24 VIS not applicable for this client. kl Intake: 11/27 00:55 IV: 500ml; Total: 500ml. kl 00:55 IV: 1000ml; Total: 1500ml. kl 00:55 IV: 1000ml; Total: 2500ml. Outcome: 01:22 Discharge ordered by . jorge luis 01:41 Discharged to home ambulatory, with family. 01:41 Condition: stable 01:41 Discharge instructions given to patient, Instructed on discharge instructions, follow up and referral plans. medication usage, Demonstrated understanding of instructions, follow-up care, medications, Prescriptions given X 3. 01:42 Patient left the ED. kl Signatures: Dispatcher [employer] Myla Cagle RN RN kl Anderson, Corey, MD MD cha Alexander, Jessica ja2 Senkyrik, Autumn as7
--- NOTE | 2022-12-10 16:05 | EDPHYS ---
Physician Documentation [facility] Name: Marta Barraza Age: 47 yrs Sex: Female : 1975 Arrival Date: 11/26/2022 Time: 19:08 Bed 16 Private MD: ED Physician Lonny [place] HPI: 11/26 20:41 This 47 yrs old Female presents to ER via Ambulatory with complaints of jorge luis Abdominal Pain. 20:41 The patient presents with abdominal pain in the epigastric area, in the upper abdomen, jorge luis in the left upper quadrant. Onset: The symptoms/episode began/occurred 3 week(s) ago. The symptoms radiate to left back. Associated signs and symptoms: none. The symptoms are described as crampy. Modifying factors: The symptoms are alleviated by nothing, the symptoms are aggravated by nothing. Severity of pain: At its worst the pain was mild in the emergency department the pain is unchanged. The patient has not experienced similar symptoms in the past. Historical: - Allergies: 20:22 Ondansetron HCl; kl - PMHx: 20:22 Kidney stones; kl - Immunization history:: Adult Immunizations not up to date. - Social history:: Smoking status: Patient denies any tobacco usage or history of. - Family history:: not pertinent. ROS: 20:41 Constitutional: Negative for fever, chills, and weight loss, Eyes: Negative for injury, jorge luis pain, redness, and discharge, ENT: Negative for injury, pain, and discharge, Neck: Negative for injury, pain, and swelling, Cardiovascular: Negative for chest pain, palpitations, and edema, Respiratory: Negative for shortness of breath, cough, wheezing, and pleuritic chest pain, Back: Negative for injury and pain, : Negative for injury, bleeding, discharge, and swelling, MS/Extremity: Negative for injury and deformity, Skin: Negative for injury, rash, and discoloration, Neuro: Negative for headache, weakness, numbness, tingling, and seizure, Psych: Negative for depression, anxiety, suicide ideation, homicidal ideation, and hallucinations, Allergy/Immunology: Negative for hives, rash, and allergies, Endocrine: Negative for neck swelling, polydipsia, polyuria, polyphagia, and marked weight changes, Hematologic/Lymphatic: Negative for swollen nodes, abnormal bleeding, and unusual bruising. 20:41 Abdomen/GI: Positive for abdominal pain, of the epigastric area, right upper quadrant and left upper quadrant. Exam: 20:41 Constitutional: This is a well developed, well nourished patient who is awake, alert, jorge luis and in no acute distress. Head/Face: Normocephalic, atraumatic. Eyes: Pupils equal round and reactive to light, extra-ocular motions intact. Lids and lashes normal. Conjunctiva and sclera are non-icteric and not injected. Cornea within normal limits. Periorbital areas with no swelling, redness, or edema. ENT: Nares patent. No nasal discharge, no septal abnormalities noted. Tympanic membranes are normal and external auditory canals are clear. Oropharynx with no redness, swelling, or masses, exudates, or evidence of obstruction, uvula midline. Mucous membranes moist. Neck: Trachea midline, no thyromegaly or masses palpated, and no cervical lymphadenopathy. Supple, full range of motion without nuchal rigidity, or vertebral point tenderness. No Meningismus. Chest/axilla: Normal chest wall appearance and motion. Nontender with no deformity. No lesions are appreciated. Cardiovascular: Regular rate and rhythm with a normal S1 and S2. No gallops, murmurs, or rubs. Normal PMI, no JVD. No pulse deficits. Respiratory: Lungs have equal breath sounds bilaterally, clear to auscultation and percussion. No rales, rhonchi or wheezes noted. No increased work of breathing, no retractions or nasal flaring. Abdomen/GI: Soft, non-tender, with normal bowel sounds. No distension or tympany. No guarding or rebound. No evidence of tenderness throughout. Back: No spinal tenderness. No costovertebral tenderness. Full range of motion. Skin: Warm, dry with normal turgor. Normal color with no rashes, no lesions, and no evidence of cellulitis. MS/ Extremity: Pulses equal, no cyanosis. Neurovascular intact. Full, normal range of motion. Neuro: Awake and alert, GCS 15, oriented to person, place, time, and situation. Cranial nerves II-XII grossly intact. Motor strength 5/5 in all extremities. Sensory grossly intact. Cerebellar exam normal. Normal gait. Psych: Awake, alert, with orientation to person, place and time. Behavior, mood, and affect are within normal limits. 20:41 ECG was reviewed by the Attending Physician. Vital Signs: 19:56 BP 131 / 84; Pulse 80; Resp 16 S; Temp 97.8(O); Pulse Ox 96% on R/A; as7 20:24 BP 128 / 94; Pulse 72; Resp 18; Pulse Ox 100% on R/A; kl 11/27 01:40 BP 122 / 78; Pulse 65; Resp 18; Pulse Ox 99% on R/A; kl MDM: 11/26 20:00 Patient medically screened. jorge luis 20:44 Differential diagnosis: appendicitis, bowel obstruction, diverticulitis, gastritis, jorge luis Irritable bowel syndrome, non-specific abd pain, pancreatitis, Peptic Ulcer Disease, Perf. Duodenal Ulcer, Perf. Gastric Ulcer. Data reviewed: vital signs, nurses notes, lab test result(s), EKG, radiologic studies, plain films. Test considered but Not performed: MRI: NO MRI PANCREASE. Historians other than the Patient: Spouse/Significant Other: . Care significantly affected by the following chronic conditions: KIDNEY STONES. Counseling: I had a detailed discussion with the patient and/or guardian regarding: the historical points, exam findings, and any diagnostic results supporting the discharge/admit diagnosis, lab results, radiology results. 11/26 19:14 Order name: Basic Metabolic Panel; Complete Time: 21:39 jorge luis 11/26 19:14 Order name: CBC with Diff; Complete Time: 21:39 jorge luis 11/26 19:14 Order name: LFT's; Complete Time: 21:39 jorgel uis 11/26 19:14 Order name: Magnesium; Complete Time: 21:39 jorge luis 11/26 19:14 Order name: NT PRO-BNP; Complete Time: 21:39 jorge luis 11/26 19:14 Order name: PT-INR; Complete Time: 21:39 jorge luis 11/26 19:14 Order name: Troponin HS; Complete Time: 21:39 jorge luis 11/26 19:14 Order name: Lipase; Complete Time: 21:39 jorge luis 11/26 19:14 Order name: Lipid Profile; Complete Time: 21:39 jorge luis 11/26 19:14 Order name: Lactate w/ 2H reflex if indic.; Complete Time: 21:49 jorge luis 11/26 22:24 Order name: Urine Dipstick-Ancillary; Complete Time: 23:10 EDMS 11/26 22:28 Order name: Urine --Ancillary (enter results); Complete Time: 23:10 11/27 01:13 Order name: Lactate Sepsis 2 HR Follow-up; Complete Time: 01:21 EDMS 11/26 19:14 Order name: XRAY Chest (1 view); Complete Time: 21:39 [facility] 11/26 19:14 Order name: CT Chest For PE Angio; Complete Time: 23:10 [facility] 11/26 19:14 Order name: CT Abd/Pelvis - PO and IV Contrast [facility] 11/26 19:14 Order name: EKG; Complete Time: 19:15 [facility] 11/26 19:14 Order name: Cardiac monitoring; Complete Time: 21:21 [facility] 11/26 19:14 Order name: EKG - Nurse/Tech; Complete Time: 21:21 [facility] 11/26 19:14 Order name: IV Saline Lock [facility] 11/26 19:14 Order name: Labs collected and sent [facility] 11/26 19:14 Order name: O2 Per Protocol [facility] 11/26 19:14 Order name: O2 Sat Monitoring [facility] 11/26 19:14 Order name: Urine Dipstick-Ancillary (obtain specimen) [facility] 11/26 22:19 Order name: Misc. Order: REPEAT LAC AT 2 HOURS jogre luis Administered Medications: 21:20 Drug: Pantoprazole IVP 40 mg Route: IVP; Site: left forearm; 21:20 Drug: NS 0.9% IV 1000 ml Route: IV; Rate: 1 bolus; Site: left forearm; 11/27 00:55 Follow up: IV Intake: 1000ml 11/26 23:01 Drug: NS 0.9% IV 1000 ml Route: IV; Rate: 1 bolus; Site: right forearm; 11/27 00:55 Follow up: IV Intake: 1000ml 11/26 23:57 Drug: Rocephin IV 1 grams Route: IV; Rate: per protocol; Site: right forearm; 11/27 00:55 Follow up: Response: No adverse reaction kl 01:41 Follow up: Response: No adverse reaction 00:01 Drug: NS 0.9% IV 500 ml Route: IV; Rate: bolus; Site: right forearm; 00:55 Follow up: IV Status: Completed infusion; IV Intake: 500ml 00:02 Not Given (Duplicate Order): NS 0.9% IV 1000 ml IV at 125 ml/hr continuous kl Disposition Summary: 11/27/22 01:22 Discharge Ordered Location: Home [facility] Problem: new [facility] Symptoms: have improved [facility] Condition: Stable jorge luis Diagnosis - Abdominal pain, Generalized jorge luis - UTI/ Urinary tract infection, site not specified jorge luis Followup: jorge luis - With: Private Physician - When: 2 - 3 days - Reason: Recheck today's complaints, Continuance of care, Re-evaluation by your physician Followup: jorge luis - With: - When: 2 - 3 days - Reason: Recheck today's complaints, Continuance of care, Re-evaluation by your physician Discharge Instructions: - Discharge Summary Sheet jorge luis - Abdominal Pain, Adult jorge luis - Urinary Tract Infection, Adult jorge luis - Urinary Tract Infection, Adult, [id number] jorge luis - Abdominal Pain, Adult, [id number] [facility] Forms: - Medication Reconciliation Form [facility] - Thank You Letter [facility] - Antibiotic Education [facility] - Prescription Opioid Use [facility] Prescriptions: - Cipro 250 mg Oral Tablet - take 11 tablet by ORAL route every 12 hours; 14 tablet; Refills: 0, Product [facility] Selection Permitted - Pepcid 20 mg Oral Tablet - take 1 tablet by ORAL route every 12 hours for 21 days; 42 tablet; Refills: 0, [facility] Product Selection Permitted - promethazine 25 mg Oral Tablet - take 1 tablet by ORAL route every 6 hours As needed; 20 tablet; Refills: 0, [facility] Product Selection Permitted - dicyclomine 20 mg Oral Tablet - take 1 tablet by ORAL route 4 times per day; 28 tablet; Refills: 0, Product [facility] Selection Permitted Signatures: Dispatcher [employer] Myla Cagle RN RN kl Anderson, Corey, MD MD [facility] Corrections: (The following items were deleted from the chart) 00:53 11/26 19:15 SARS-COV-2 Antigen Rapid+I.LAB.BRZ ordered. VALARIE SHEPPARD
== END 2022-11-27 01:42 | disposition home or self-care (01) ==
LOC: ER 19:03
DX: N39.0 Urinary tract infection, site not specified (principal); Z87.442 Personal history of urinary calculi; Z88.8 Allergy status to other drugs, medicaments and biological substances
CPT/HCPCS: 93005; 85025; 80048; 36415; 83735; 81025; 85610; 80061; 80076; 83605 ×2; 81003; 84484; 83690; 83880; 71275; 74177; 71045; 99284; Q9967; J7030; J0696

== ENCOUNTER 2023-06-21 09:35 | Emergency (ER) | payer OTHER ==
--- OUTSIDE RECORDS SUMMARY | 2023-06-21 09:40 | XMS REPORT | Continuity of Care Document ---
:1975 Author Organization [facility] Address [address] [place] [address] [address] [place] [address] Care Team Providers Name Role Phone CHANDRA FLORES Attending Clinician Unavailable Merle_Eduard Attending Clinician Unavailable DAMI GALVIN Attending Clinician Unavailable AVIVA Attending Clinician Unavailable Fly Hein Attending Clinician Unavailable Divya Chatterjee Attending Clinician Unavailable G_Papedna Admitting Clinician Unavailable CHANEL_Mike Admitting Clinician Unavailable Payers Payer Name Policy Type Policy Number Effective Date Expiration Date [facility] [place] [id number] [place] WOMEN'S [id number] HEALTH PROGRAM (MEDICAID) Problems Condition Condition Condition Status Onset Resolution Last Treating Co mments Source Name Details Category Date Date Treatment Clinician Date Generalize Generalize Problem Active [facility] anxiety d Anxiety 6-08 da disorder Disorder 00:00: Medica l 00 Group 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 Social History Smoking Status Start Date Stop Date Source Never Smoker [facility] Medications Ordered Filled Start Stop Current Ordering Indication Dosage Frequency Signature Comments Components Source Medication Medication Date Date Medication? Clinician (SIG) Name Name valacyclovi valacyclovi No valacyclov [place] 500 mg r 500 mg 5-04 ir 500 mg da tablet TAKE tablet TAKE 00:00: tablet Medical 1 TABLET BY 1 TABLET BY 00 TAKE 1 Group MOUTH TWICE MOUTH TWICE TABLET BY A DAY FOR 5 A DAY FOR 5 MOUTH DAYS DAYS TWICE A DAY FOR 5 DAYS citalopram citalopram No citalopram [place] 20 mg [...] REPEAT WHEN REPEAT INSTRUCTED INSTRUCTED WHEN INSTRUCTED estradiol 1 estradiol 1 No 1 Q1D estradiol [place] mg tablet mg tablet 1 mg da Take 1 Take 1 tablet Medical tablet tablet Take 1 Group every day every day tablet by oral by oral every day route. route. by oral route. lorazepam 1 lorazepam 1 No 1 Q6H lorazepam [place] mg tablet mg tablet 1 mg da Take 1 Take 1 tablet Medical tablet tablet Take 1 Group every 6 every 6 tablet hours by hours by every 6 oral route oral route hours by as needed. as needed. oral route as needed. tolterodine tolterodine No 1 BID tolterodin [place] 1 mg tablet 1 mg tablet e 1 mg da Take 1 Take 1 tablet Medical tablet tablet Take 1 Group twice a day twice a day tablet by oral by oral twice a route. route. day by oral route. Vital Signs Vital Name Observation Time Observation Value Comments Source BP Diastolic 2023-01-20 00:00:00 81 mm[Hg] [facility] Height 2023-01-20 00:00:00 62 [in_i] [facility] BMI (Body Mass 2023-01-20 00:00:00 25.8 kg/m2 [facility] Index) Group BP Systolic 2023-01-20 00:00:00 125 mm[Hg] [facility] Body Weight 2023-01-20 00:00:00 140.8 [lb_av] [facility] BP Diastolic 2021-10-22 00:00:00 91 mm[Hg] [facility] Height 2021-10-22 00:00:00 62 [in_i] [facility] BMI (Body Mass 2021-10-22 00:00:00 27 kg/m2 [facility] Index) Group BP Systolic 2021-10-22 00:00:00 133 mm[Hg] [facility] Body Weight 2021-10-22 00:00:00 147.7 [lb_av] [facility] BP Diastolic 2020-02-25 00:00:00 82 mm[Hg] [facility] Height 2020-02-25 00:00:00 62 [in_i] [facility] BMI (Body Mass 2020-02-25 00:00:00 25.8 kg/m2 [facility] Index) Group BP Systolic 2020-02-25 00:00:00 112 mm[Hg] [facility] Body Weight 2020-02-25 00:00:00 140.8 [lb_av] [facility] Procedures Procedure Date / Time Performing Clinician Source Performed MAMMO, screening, 2023-01-17 00:00:00 [facility] bilateral [facility] MAMMO, screening, 2021-10-20 00:00:00 [facility] MAMMO, screening, 2020-02-08 00:00:00 [facility] Breast Implants 2016-09-19 00:00:00 [facility] Gastric Bypass 2016-08-19 00:00:00 [facility] Oophorectomy 2012-09-19 00:00:00 [facility] Hysterectomy 2008-09-19 00:00:00 [facility] Tubal Ligation 1999-09-19 00:00:00 [facility] Appendectomy 1994-09-19 00:00:00 [facility] Plan of Care Planned Activity Planned Date Details Comments Source Diagnostic Test 2023-01-20 urinalysis, [facility] 00:00:00 dipstick [code = Group urinalysis, dipstick] Diagnostic Test 2023-01-20 pap, LB + HR [facility] 00:00:00 [code = pap, LB + Group HR HPV] Diagnostic Test 2023-01-20 wet mount, vaginal [facility] Pending 00:00:00 [code = wet [place], Group vaginal] Diagnostic Test 2023-01-20 testosterone, [facility] 00:00:00 total, serum [code Group = testosterone, total, serum] Instructions [facility] Encounters Start End Encounter Admission Attending Care Care Encounter Source Date/Time Date/Time Type Type Clinicians Facility Department ID 2023-05-17 2023-05-17 Outpatient MARIA GUADALUPE FLORES [facility] [id number] [place] 16:00:00 16:00:00 CHANDRA [id number] [facility] 2023-01-20 2023-01-20 Outpatient MARIA GUADALUPE FLORES, [facility] [id number] [place] 15:58:00 15:58:00 CHANDRA [id number] [facility] 2023-01-20 2023-01-20 Outpatient G_Pappas [facility] [id number] [place] 00:00:00 00:00:00 [id number] 2023-01-20 2023-01-20 Chandra [facility] [place] - [id number] Valerie [facility] 00:00:00 00:00:00 Discovery lata Flores MD: [address] [place] [address] , Ph. [phone] 2023-01-14 2023-01-14 Outpatient G_Pappas [facility] [id number] [place] 00:00:00 00:00:00 0428 [facility] 2022-06-02 2022-06-02 Outpatient DAMI VERDUGO [facility] [id number] [place] 10:03:00 10:03:00 [id number] [facility] 2021-12-21 2021-12-21 Outpatient WATERS_S [facility] [id number] [place] 09:23:00 09:23:00 [id number] 2021-10-28 2021-10-28 Outpatient MARIA GUADALUPE FLORES [facility] [id number] [place] 13:06:00 13:06:00 CHANDRA [id number] [facility] 2021-10-22 2021-10-22 Outpatient G_Pappas [facility] [id number] [place] 04:12:00 04:12:00 0203 Medical Group 2021-10-22 2021-10-22 Chandra [facility] - [id number] [facility] 00:00:00 00:00:00 Discovery lata Flores MD: [address] [facility] [address], [place] [address] , Ph. [phone] 2020-07-17 2020-07-17 [id number] [place] 10:32:00 10:32:00 1029 [facility] 2020-03-08 2020-03-08 Outpatient G_Pappas [facility] MMG [id number] [place] 11:28:00 11:28:00 [id number] [facility] 2020-02-25 2020-02-25 Outpatient G_Pappas MMG MMG [id number] [place] 11:11:00 11:11:00 0608 [facility] 2020-02-25 2020-02-25 Outpatient G_Pappas MMG MMG [id number] [place] 11:11:00 11:11:00 0619 [facility] 2020-02-25 2020-02-25 Chandra [facility] [place] - [id number] M [facility] 00:00:00 00:00:00 Discovery lata Flores MD: [address] [facility] [address], [place] [address] , Ph. [phone] 2019-03-26 2019-03-26 Outpatient G_Pappas MM[facility] MMG [id number] [place] 11:23:00 11:23:00 0605 Medical Group 2018-05-15 2018-05-15 Outpatient MICHAEL VILLANUEVA [facility] [id number] [place] 11:00:00 11:00:00 CHANDRA [id number] [facility] 2017-01-26 2017-01-26 Outpatient ASHLEY Hein [id number] [facility] 10:49:00 10:49:00 Fly warren OBGYN 2017-01-26 2017-01-26 Outpatient ASHLEY Chatterjee [id number] [facility] 10:49:00 10:49:00 Divya HustonGYKyleigh 2017-01-11 2017-01-11 Outpatient ASHLEY Hein [id number] [facility] 13:44:00 13:44:00 Fly Wilder Results Test Description Test Time Test Comments Results Result Comments Source Microscopic observation [Identifier] in Vaginal fluid by Wet 2023-01-20 15:44:52 preparation Test Item Value Reference Range Interpretation Comme nts Clue Cells (test code = Clue Cells) negative WBCs (test code = WBCs) negative Trichomonads (test code = Trichomonads) negative Epithelial cells (test code = Epithelial cells) normal RBCs (test code = RBCs) negative [facility] macro (dipstick) panel - [id number] 14:55:00 Test Item Value Reference Range Interpretation Comments Leukocytes (test code = Negative Leukocytes) Nitrite (test code = Nitrite) negative Urobilinogen (test code = .2 Urobilinogen) Protein (test code = Protein) Negative pH (test code = pH) 5.5 Blood (test code = Blood) Negative Specific [place] (test code = 1.010 Specific [place]) Ketone (test code = Ketone) Negative Bilirubin (test code = Bilirubin) Negative Glucose (test code = Glucose) 250 Appearance (test code = Clear Appearance) Color (test code = Color) Dark Yellow [facility] Group[facility] macro (dipstick) panel - [id number] 15:26:27 Test Item Value Reference Range Interpretation Comments Leukocytes (test code = Leukocytes) Negative Nitrite (test code = Nitrite) negative Urobilinogen (test code = .2 Urobilinogen) Protein (test code = Protein) Negative pH (test code = pH) 5.5 Blood (test code = Blood) Negative Specific [place] (test code = 1.015 Specific [place]) Ketone (test code = Ketone) Negative Bilirubin (test code = Bilirubin) Negative Glucose (test code = Glucose) Negative Appearance (test code = Appearance) Clear Color (test code = Color) Yellow [facility] macro (dipstick) panel - [id number] 08:59:27 Test Item Value Reference Range Interpretation Comments Leukocytes (test code = Leukocytes) Large Nitrite (test code = Nitrite) negative Urobilinogen (test code = .2 Urobilinogen) Protein (test code = Protein) Negative pH (test code = pH) 6.0 Blood (test code = Blood) Negative Specific [place] (test code = 1.030 Specific [place]) Ketone (test code = Ketone) Trace Bilirubin (test code = Bilirubin) Small Glucose (test code = Glucose) Negative Appearance (test code = Appearance) Clear Color (test code = Color) Yellow [facility]
[2023-06-21] MEDS ORDERED: KETOROLAC 30 MG/ML INJ ONE (10:31)
[2023-06-21] MEDS ORDERED: ASPIRIN 81 MG CHEWABLE TABLET ONE (10:31)
--- NOTE | 2023-06-21 11:03 | RAD REPORT ---
EXAM DESCRIPTION: US - Extremity Venous Uni Ltd - 06/21/2023 10:29 am CLINICAL HISTORY: Pain COMPARISON: None. TECHNIQUE: Real-time sonographic evaluation of the left lower extremity deep venous system was perfo rmed. FINDINGS: Normal compressibility, flow augmentation, phasic flow and spontaneous flow is identified in the left lower extremity deep venous system. No intraluminal filling defects seen. IMPRESSION: No DVT in the left lower extremity.
--- NOTE | 2023-06-21 11:10 | RAD REPORT ---
EXAM DESCRIPTION: CT - Head Brain Wo Cont - 06/21/2023 10:42 am CLINICAL HISTORY: NUMBNESS COMPARISON: Head angio dated 06/21/2023 TECHNIQUE: Noncontrast head CT images were obtained without IV contrast. Multiplanar reformats were generated and reviewed. All CT scans are performed using dose optimization technique as appropriate and may include automated exposure control or mA/KV adjustment according to patient size. FINDINGS: No intracranial hemorrhage, mass, or edema. Midline structures are unremarkable. Normal ventricular caliber for age. Cronin-white matter differentiation is preserved, without evidence of acute infarct. No abnormal extra- axial fluid collections. Mastoid air cells and visualized portions of the paranasal sinuses are clear. No acute bony findings. IMPRESSION: No evidence of an acute intracranial process.
--- NOTE | 2023-06-21 11:14 | RAD REPORT ---
EXAM DESCRIPTION: CT - Neck Angio - 06/21/2023 10:42 am CLINICAL HISTORY: NUMBNESS COMPARISON: Head Brain Wo Cont dated 06/21/2023; Head angio dated 06/21/2023 TECHNIQUE: Axial CT angiography images of the head was performed with multiplanar and maximum intens ity projection reconstructions. Images performed following intravenous administration of 100mL Isovue 370. All CT scans are performed using dose optimization technique as appropriate and may include automated exposure control or mA/KV adjustment according to patient size. Quantification of carotid stenosis, if any, is performed according to NASCET criteria. FINDINGS: A left aortic arch is identified with normal three vessel configuration of the great vesse ls. No significant flow abnormality is seen of the common carotid bilaterally. No significant stenosis is identified involving the cervical segments of both internal carotid arteri es. Normal flow is seen within both vertebral arteries to the level of the skullbase. Left vertebral arias ry is dominant. IMPRESSION: No significant flow abnormality of the neck vessels is identified. CAROTID STENOSIS REFERENCE USING NASCET CRITERIA: % ICA stenosis = (1 - narrowest ICA diameter/diameter of distal cervical ICA) x 100. Mild - <50% stenosis. Moderate - 50-69% stenosis. Severe - 70-94% stenosis. Near occlusion - 95-99% stenosis. Occluded - 100% stenosis.
--- NOTE | 2023-06-21 11:18 | RAD REPORT ---
EXAM DESCRIPTION: CT - Head angio - 06/21/2023 10:43 am CLINICAL HISTORY: NUMBNESS COMPARISON: Head Brain Wo Cont dated 06/21/2023; Neck Angio dated 06/21/2023 TECHNIQUE: Axial CT angiography images of the head was performed with multiplanar and maximum intens ity projection reconstructions. Images performed following intravenous administration of 100mL Isovue 370. All CT scans are performed using dose optimization technique as appropriate and may include automated exposure control or mA/KV adjustment according to patient size. FINDINGS: No evidence of large vessel occlusion. No evidence of aneurysm or dissection flap is detec acacia. No flow-limiting stenosis or vascular malformation identified. Antegrade flow is seen in the vertebral arteries. Diminutive appearance of the vertebral arteries david aterally which could be developmental, with patent bilateral posterior communicating arteries noted. The visualized dural venous sinuses are grossly patent. IMPRESSION: No evidence of large vessel occlusion or flow-limiting stenosis.
[2023-06-21 11:23] LABS: Absolute Lymphocytes (CBC) 1.6 K/uL (0.7-4.9); Hematocrit 38.5 % (36.0-45.0); Lymphocytes % 29.7 % (15.3-44.8); MCV 94.4 fL (80-100); MPV 7.5 fL (7.6-11.3); Platelets 294 thou/uL (152-406); RBC Red Blood Cell Count 4.08 M/uL (3.86-4.86)
[2023-06-21 11:28] LABS: Protime INR 1.04
[2023-06-21 11:42] LABS: Albumin 3.5 g/dL (3.4-5.0); Bilirubin Direct 0.1 mg/dL (0-0.2); Bilirubin Indirect, Calculated 0.4 mg/dL (0.2-0.8); Bilirubin Total 0.5 mg/dL (0.2-1.0); Magnesium 2.2 mg/dL (1.6-2.4); Potassium 3.6 mEq/L (3.5-5.1); Protein, Total 6.9 g/dL (6.4-8.2); Troponin High Sensitivity 3.2 pg/mL (<58.9)
--- NOTE | 2023-06-21 11:52 | RAD REPORT ---
EXAM DESCRIPTION: RADChest Single View06/21/2023 11:32 am CLINICAL HISTORY: numbness COMPARISON: Chest Single View dated 11/26/2022; CHEST SINGLE VIEW dated 05/18/2012; CHEST PA AND LAT 2 VIEW dated 09/13/2009; CHEST PA AND LAT 2 VIEW dated 05/31/2009 TECHNIQUE: Portable AP view of the chest. FINDINGS: The lungs are clear. No pneumothorax or effusion. The cardiomediastinal contours are unre markable. IMPRESSION: No acute cardiopulmonary process.
--- NOTE | 2023-06-21 11:58 | EDPHYS ---
Physician Documentation [facility] Name: Marta Barraza Age: 48 yrs Sex: Female : 1975 Arrival Date: 06/21/2023 Time: 09:35 Bed 8 Private MD: ED Physician Lonny Harper Historical: - Allergies: 06/21 09:53 Ondansetron HCl; aa5 - PMHx: 09:53 Kidney stones; aa5 - PSHx: 09:59 hysterectomy; Cholecystectomy; Appendectomy; aa5 - Immunization history:: Adult Immunizations unknown. - Social history:: Smoking status: Patient denies any tobacco usage or history of. Vital Signs: 09:53 BP 166 / 92; Pulse 73; Resp 18 S; Temp 97.9(TE); Pulse Ox 100% on R/A; Weight 61.23 kg aa5 (R); Height 5 ft. 3 in. (R); 11:05 BP 138 / 76; Pulse 72; Resp 18; Pulse Ox 100% on R/A; ld1 11:57 BP 134 / 94; Pulse 68; Resp 16 S; Pulse Ox 100% on R/A; kc6 09:53 Body Mass Index 23.91 (61.23 kg, 160.02 cm) aa5 MDM: 09:53 Patient medically screened. jorge luis 06/21 09:56 Order name: Basic Metabolic Panel; Complete Time: 11:44 snw 06/21 09:56 Order name: CBC with Diff; Complete Time: 11:37 snw 06/21 09:56 Order name: D-Dimer; Complete Time: 11:28 snw 06/21 09:56 Order name: LFT's; Complete Time: 11:44 snw 06/21 09:56 Order name: Magnesium; Complete Time: 11:44 snw 06/21 09:56 Order name: NT PRO-BNP; Complete Time: 11:44 snw 06/21 09:56 Order name: PT-INR; Complete Time: 11:28 snw 06/21 09:56 Order name: Troponin HS; Complete Time: 11:44 snw 06/21 10:08 Order name: Flu; Complete Time: 11:56 aa5 06/21 09:56 Order name: XRAY Chest (1 view); Complete Time: 11:56 snw 06/21 09:56 Order name: CT Head Brain wo Cont; Complete Time: 11:23 snw 06/21 09:56 Order name: CT Neck Angio; Complete Time: 11:23 snw 06/21 09:56 Order name: CT Head Angio; Complete Time: 11:23 snw 06/21 10:07 Order name: US Extremity Venous Unilateral Ltd; Complete Time: 11:23 aa5 06/21 09:56 Order name: EKG; Complete Time: 09:56 snw 06/21 09:56 Order name: Cardiac monitoring; Complete Time: 11:03 snw 06/21 09:56 Order name: EKG - Nurse/Tech; Complete Time: 10:12 snw 06/21 09:56 Order name: IV Saline Lock; Complete Time: 11:03 snw 06/21 09:56 Order name: Labs collected and sent; Complete Time: 11:14 snw 06/21 09:56 Order name: O2 Per Protocol; Complete Time: 10:12 snw 06/21 09:56 Order name: O2 Sat Monitoring; Complete Time: 10:12 snw EC:10 Rate is 77 beats/min. Rhythm is regular. QRS Drifting is Normal. SD interval is shortened. snw QRS interval is normal. QT interval is normal. No Q waves. Clinical impression: NSR w/ Non-specific ST/T Changes. Administered Medications: 11:03 Drug: Aspirin PO Chewable Tablet 324 mg PO once; 81 mg tablets x 4 Route: PO; kc6 11:58 Follow up: Response: No adverse reaction 6 11:03 Drug: Ketorolac IVP 15 mg IVP once Route: IVP; Site: left wrist; kc6 11:58 Follow up: Response: No adverse reaction; Pain is decreased kc6 Disposition Summary: 06/21/23 11:57 Discharge Ordered Notes: Location: Home snw Condition: Stable snw Diagnosis - Influenza due to identified novel influenza A virus snw - Myalgia snw Followup: snw - With: Emergency Department - When: As needed - Reason: Worsening of condition Followup: snw - With: Private Physician - When: 2 - 3 days - Reason: Recheck today's complaints, Continuance of care, Re-evaluation by your physician Discharge Instructions: - Discharge Summary Sheet snw - Chest Wall Pain snw - Influenza, Adult snw - Muscle Pain, Adult snw Forms: - Medication Reconciliation Form snw - Thank You Letter snw - Antibiotic Education snw - Prescription Opioid Use snw - Patient Portal Instructions snw - Leadership Thank You Letter snw Prescriptions: - Tessalon Perles 100 mg Oral Capsule - take 1 capsule ORAL route every 8 hours As needed; 15 capsule; Refills: 0, snw Product Selection Permitted - Tramadol 50 mg Oral Tablet - take 1 tablet ORAL route every 8 hours as needed; 12 tablet; Refills: 0, snw Product Selection Permitted - promethazine 25 mg Oral Tablet - take 1 tablet ORAL route every 6 hours As needed; 20 tablet; Refills: 0, snw Product Selection Permitted Signatures: Dispatcher [employer] EDLonny Chan MD MD cha Waters, Shelly, MECHANIC INSULATOR-C MECHANIC INSULATOR-Csnw Rachna aBl, RN RN aa5 Jannet Fernando RN RN kc6
--- NOTE | 2023-06-21 11:58 | ER ---
Nurse's Notes [facility] Name: Marta Barraza Age: 48 yrs Sex: Female : 1975 Arrival Date: 06/21/2023 Time: 09:35 Bed 8 Private MD: Diagnosis: Influenza due to identified novel influenza A virus;Myalgia Presentation: 06/21 09:53 Chief complaint: Patient states: "my blood pressure has been running high, the highest aa5 was 151/100 since Tuesday". Pt also reports SOB and left leg numbness and pain to left calf/posterior knee x 1 week ago. Coronavirus screen: At this time, the client does not indicate any symptoms associated with coronavirus-19. Ebola Screen: Patient denies travel to an Ebola-affected area in the 21 days before illness onset. Initial Sepsis Screen: Does the patient meet any 2 criteria? No. Patient's initial sepsis screen is negative. Does the patient have a suspected source of infection? No. Patient's initial sepsis screen is negative. Risk Assessment: Do you want to hurt yourself or someone else? Patient reports no desire to harm self or others. Onset of symptoms was May 2023. 09:53 Acuity: CINDY 3 aa5 09:53 Method Of Arrival: Ambulatory aa5 Historical: - Allergies: 09:53 Ondansetron HCl; aa5 - PMHx: 09:53 Kidney stones; aa5 - PSHx: 09:59 hysterectomy; Cholecystectomy; Appendectomy; aa5 - Immunization history:: Adult Immunizations unknown. - Social history:: Smoking status: Patient denies any tobacco usage or history of. Screenin:00 [facility] ED Fall Risk Assessment (Adult) History of falling in the last 3 months, kc6 including since admission No falls in past 3 months (0 pts) Confusion or Disorientation No (0 pts) Intoxicated or Sedated No (0 pts) Impaired Gait No (0 pts) Mobility Assist Device Used No (0 pt) Altered Elimination No (0 pt) Score/Fall Risk Level 0 - 2 = Low Risk. Abuse screen: Denies threats or abuse. Denies injuries from another. Nutritional screening: No deficits noted. Tuberculosis screening: No symptoms or risk factors identified. Assessment: 11:00 General: Appears in no apparent distress. comfortable, Behavior is calm, cooperative, kc6 appropriate for age. Pain: Denies pain. Neuro: Level of Consciousness is awake, alert, obeys commands, Oriented to person, place, time, situation, Appropriate for age. Cardiovascular: Denies chest pain, Capillary refill < 3 seconds Rhythm is sinus rhythm. Respiratory: Reports shortness of breath Airway is patent Trachea midline Respiratory effort is even, unlabored, Respiratory pattern is regular, symmetrical, Breath sounds are clear bilaterally. GI: No signs and/or symptoms were reported involving the gastrointestinal system. GI: No signs and/or symptoms were reported involving the gastrointestinal system. : No signs and/or symptoms were reported regarding the genitourinary system. EENT: No signs and/or symptoms were reported regarding the EENT system. Derm: No signs and/or symptoms reported regarding the dermatologic system. Skin is intact, is healthy with good turgor, Skin is pink, warm \\T\\ dry. Musculoskeletal: No signs and/or symptoms reported regarding the musculoskeletal system. Circulation, motion, and sensation intact. Capillary refill < 3 seconds, Range of motion: intact in all extremities. 11:10 Reassessment: Manny at bedside attempted to start an new IV and collect labs. kc6 11:57 Reassessment: Patient appears in no apparent distress at this time. No changes from kc6 previously documented assessment. Patient and/or family updated on plan of care and expected duration. Pain level reassessed. Patient is alert, oriented x 3, equal unlabored respirations, skin warm/dry/pink. Vital Signs: 09:53 BP 166 / 92; Pulse 73; Resp 18 S; Temp 97.9(TE); Pulse Ox 100% on R/A; Weight 61.23 kg aa5 (R); Height 5 ft. 3 in. (R); 11:05 BP 138 / 76; Pulse 72; Resp 18; Pulse Ox 100% on R/A; ld1 11:57 BP 134 / 94; Pulse 68; Resp 16 S; Pulse Ox 100% on R/A; kc6 09:53 Body Mass Index 23.91 (61.23 kg, 160.02 cm) aa5 ED Course: 09:40 Patient arrived in ED. mr 09:41 Collette Betancourt FNP-C [facility]. snw 09:41 Lonny Harper MD is Attending Physician. snw 09:53 Arm band placed on. aa5 09:56 Triage completed. aa5 10:16 Jannet Fernando, RN is Primary Nurse. kc6 10:31 US Extremity Venous Unilateral Ltd In Process Unspecified. EDMS 10:44 CT Head Brain wo Cont In Process Unspecified. EDMS 10:44 CT Neck Angio In Process Unspecified. EDMS 10:45 CT Head Angio In Process Unspecified. EDMS 10:45 Inserted saline lock: 22 gauge in left wrist, using aseptic technique. ,using aseptic kc6 technique. by Charmaine from CT. 11:00 Patient has correct armband on for positive identification. Bed in low position. Call kc6 light in reach. Side rails up X 1. Client placed on continuous cardiac and pulse oximetry monitoring. NIBP monitoring applied. youth nutritional monitor on. 11:00 Missed attempt(s): 20 gauge in left antecubital area. kc6 11:34 XRAY Chest (1 view) In Process Unspecified. EDMS 12:03 No provider procedures requiring assistance completed. IV discontinued, intact, ld1 bleeding controlled, No redness/swelling at site. Administered Medications: 11:03 Drug: Aspirin PO Chewable Tablet 324 mg PO once; 81 mg tablets x 4 Route: PO; kc6 11:58 Follow up: Response: No adverse reaction kc6 11:03 Drug: Ketorolac IVP 15 mg IVP once Route: IVP; Site: left wrist; kc6 11:58 Follow up: Response: No adverse reaction; Pain is decreased kc6 Medication: 12:04 VIS not applicable for this client. ld1 Outcome: 11:57 Discharge ordered by . snlorena 12:04 Discharged to home ambulatory, ld1 12:04 Condition: stable 12:04 Discharge instructions given to patient, Instructed on discharge instructions, follow up and referral plans. Demonstrated understanding of instructions, follow-up care, 12:04 Patient left the ED. ld1 Signatures: Dispatcher [employer] EDMS Collette Betancourt, ROXY-C ATG ARCHITECT-Csnw Silvia Cerna, Ankit Reg mr BalRachna, RN RN aa5 Teresa Mahan RN RN ld1 Jannet Fernando, RN RN kc6 Corrections: (The following items were deleted from the chart) 09:59 09:53 BP 166 / 92; Pulse 73bpm; Resp 18bpm; Spontaneous; Pulse Ox 100% RA; Temp 97.9F aa5 Temporal; aa5
[2023-06-21 12:47] VITALS: TEMP 97.9; O2SAT 100
--- NOTE | 2023-06-21 12:48 | EKG ---
Test Date: 2023-06-21 Test Time: 10:08:21 Bargain Table Clerk: SONYA MEASUREMENT RESULTS: Intervals: Rate: 77 MN: 104 QRSD: 80 QT: 358 QTc: 405 [place]: P: 80 MN: 104 QRS: 82 T: 77 INTERPRETIVE STATEMENTS: Sinus rhythm with short MN Otherwise normal ECG Compared to ECG 11/26/2022 20:08:52 Short MN interval now present Electronically Signed On 06-21-23 12:47:51 CDT by Hill Arndt
[2023-06-21 12:49] VITALS: BP 134/94
== END 2023-06-21 12:04 | disposition home or self-care (01) ==
LOC: ER 09:35
DX: J10.1 Influenza due to other identified influenza virus with other respiratory manifestations (principal); M79.10 Myalgia, unspecified site; Z88.8 Allergy status to other drugs, medicaments and biological substances; Z87.442 Personal history of urinary calculi
CPT/HCPCS: 93005; 85025; 80048; 36415; 83735; 85610; 85379; 80076; 84484; 83880; 87804 ×2; 70450; 70496; 70498; 71045; 93971; 96374; 99285; Q9967

== ENCOUNTER 2024-08-01 08:31 | Emergency (ER) | payer OTHER ==
--- OUTSIDE RECORDS SUMMARY | 2024-08-01 08:34 | XMS REPORT | Continuity of Care Document ---
Author Name Unknown Address [address] [facility] [address] thconnect Address [address] [facility] [address] 1 495 [place] [address] Care Team Providers Care Developer Analyst Name Role Phone Leonard Attending Clinician Unavailable CHANDRA FLORES Attending Clinician DAMI England Attending Clinician Unavailable CHANEL_Mike Attending Clinician Unavailable G_Eduard Admitting Clinician Unavailable WATERS_S Admitting Clinician Unavailable Payers Payer Name Policy Type Policy Number Effective Date Expirati on Date Source [facility] [id number] [place] [facility] [place]MEDICAID) [id number] Problems Condition Name Condition Details Condition Category Status Onset Date Resolution Date Last Treatment Date Treating Clinician Comments Source Generalize d anxiety disorder Generalize d Anxiety Disorder Problem Active 02-24 00:00: 00 [facility] 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 Ordering Clinician Indication Dosage Frequency Signature (SIG) Comments Components Source valacyclovi r 500 mg tablet TAKE 1 TABLET BY MOUTH TWICE A DAY FOR 5 DAYS valacyclovi r 500 mg tablet TAKE 1 TABLET BY MOUTH TWICE A DAY FOR 5 DAYS 01-20 00:00: 00 No valacyclov ir 500 mg tablet TAKE 1 TABLET BY MOUTH TWICE A DAY FOR 5 DAYS [facility] citalopram 20 mg tablet Take 1 tablet every day by oral route. citalopram 20 mg tablet Take 1 tablet every day by oral route. No citalopram 20 mg tablet Take 1 tablet every day by oral route. [facility] diazepam 5 mg tablet TAKE ONE TABLET BY MOUTH EVERY HALF HOUR WHEN INSTRUCTED diazepam 5 mg tablet TAKE ONE TABLET BY MOUTH EVERY HALF HOUR WHEN INSTRUCTED No diazepam 5 mg tablet TAKE ONE TABLET BY MOUTH EVERY HALF HOUR WHEN INSTRUCTED [facility] moxifloxaci n 0.5 % eye drops INSTILL ONE DROP INTO AFFECTED EYE(S) FOUR TIMES A DAY FOR ONE WEEK moxifloxaci n 0.5 % eye drops INSTILL ONE DROP INTO AFFECTED EYE(S) FOUR TIMES A DAY FOR ONE WEEK No moxifloxac in 0.5 % eye drops INSTILL ONE DROP INTO AFFECTED EYE(S) FOUR TIMES A DAY FOR ONE WEEK [facility] oxybutynin chloride 5 mg tablet Take 1 tablet twice a day by oral route. oxybutynin chloride 5 mg tablet Take 1 tablet twice a day by oral route. No 1 BID oxybutynin chloride 5 mg tablet Take 1 tablet twice a day by oral route. [facility] prednisolon e acetate 1 % eye drops,suspe nsion INSTILL ONE DROP TO AFFECTED EYE(S) EVERY TWO HOURS WHILE AWAKE FOR DAY 1, THEN FOUR TIMES A DAY FOR DAYS 2-7 prednisolon e acetate 1 % eye drops,suspe nsion INSTILL ONE DROP TO AFFECTED EYE(S) EVERY TWO HOURS WHILE AWAKE FOR DAY 1, THEN FOUR TIMES A DAY FOR DAYS 2-7 No prednisolo ne acetate 1 % eye drops,susp ension INSTILL ONE DROP TO AFFECTED EYE(S) EVERY TWO HOURS WHILE AWAKE FOR DAY 1, THEN FOUR TIMES A DAY FOR DAYS 2-7 [facility] promethazin e 25 mg tablet Take 1 tablet every 6 hours by oral route as needed. promethazin e 25 mg tablet Take 1 tablet every 6 hours by oral route as needed. No 1 Q6H promethazi ne 25 mg tablet Take 1 tablet every 6 hours by oral route as needed. [facility] Vyvanse 30 mg capsule Take 1 capsule every day by oral route. Vyvanse 30 mg capsule Take 1 capsule every day by oral route. No 1capsul e(s) Q1D Vyvanse 30 mg capsule Take 1 capsule every day by oral route. [facility] zolpidem 5 mg tablet TAKE ONE TABLET BY MOUTH ONCE DAILY, REPEAT WHEN INSTRUCTED zolpidem 5 mg tablet TAKE ONE TABLET BY MOUTH ONCE DAILY, REPEAT WHEN INSTRUCTED No zolpidem 5 mg tablet TAKE ONE TABLET BY MOUTH ONCE DAILY, REPEAT WHEN INSTRUCTED [facility] estradiol 1 mg tablet Take 1 tablet every day by oral route. estradiol 1 mg tablet Take 1 tablet every day by oral route. No 1 Q1D estradiol 1 mg tablet Take 1 tablet every day by oral route. [facility] lorazepam 1 mg tablet Take 1 tablet every 6 hours by oral route as needed. lorazepam 1 mg tablet Take 1 tablet every 6 hours by oral route as needed. No 1 Q6H lorazepam 1 mg tablet Take 1 tablet every 6 hours by oral route as needed. [facility] tolterodine 1 mg tablet Take 1 tablet twice a day by oral route. tolterodine 1 mg tablet Take 1 tablet twice a day by oral route. No 1 BID tolterodin e 1 mg tablet Take 1 tablet twice a day by oral route. [facility] Vital Signs Vital Name Observation Time Observation Value Comments S ource BP Diastolic 2023-01-20 00:00:00 81 mm[Hg] [facility] Height 2023-01-20 00:00:00 62 [in_i] [facility] BMI (Body Mass Index) 2023-01-20 00:00:00 25.8 kg/m2 [facility] BP Systolic 2023-01-20 00:00:00 125 mm[Hg] [facility] Body Weight 2023-01-20 00:00:00 140.8 [lb_av] [facility] BP Diastolic 2021-10-22 00:00:00 91 mm[Hg] [facility] Height 2021-10-22 00:00:00 62 [in_i] [facility] BMI (Body Mass Index) 2021-10-22 00:00:00 27 kg/m2 [facility] BP Systolic 2021-10-22 00:00:00 133 mm[Hg] [facility] Body Weight 2021-10-22 00:00:00 147.7 [lb_av] [facility] BP Diastolic 2020-02-25 00:00:00 82 mm[Hg] [facility] Height 2020-02-25 00:00:00 62 [in_i] [facility] BMI (Body Mass Index) 2020-02-25 00:00:00 25.8 kg/m2 [facility] dical [facility] BP Systolic 2020-02-25 00:00:00 112 mm[Hg] [facility] Body Weight 2020-02-25 00:00:00 140.8 [lb_av] M [facility] Procedures Procedure Date / Time Performed Performing Clinician Source MAMMO, screening, digital, bilateral 2023-01-17 00:00:00 [facility] MAMMO, screening, digital, bilateral 2021-10-20 00:00:00 [facility] MAMMO, screening, digital, bilateral 2020-02-08 00:00:00 [facility] Breast Implants 2016-09-19 00:00:00 [facility] Gastric Bypass 2016-08-19 00:00:00 [facility] Oophorectomy 2012-09-19 00:00:00 [facility] Hysterectomy 2008-09-19 00:00:00 [facility] Tubal Ligation 1999-09-19 00:00:00 [facility] Appendectomy 1994-09-19 00:00:00 [facility] Plan of Care Planned Activity Planned Date Details Comments Source Diagnostic Test Pending 2023-01-20 00:00:00 urinalysis, dipstick [code = urinalysis, dipstick] [facility] Diagnostic Test Pending 2023-01-20 00:00:00 pap, LB + HR HPV [code = pap, LB + HR HPV] [facility] Diagnostic Test Pending 2023-01-20 00:00:00 wet mount, vaginal [code = wet mount, vaginal] [facility] Diagnostic Test Pending 2023-01-20 00:00:00 testosterone, total, serum [code = testosterone, total, serum] [facility] Instructions [facility] Encounters Start Date/Time End Date/Time Encounter Type Admission Type Attending [facility] Care Facility Care Department Encounter ID Source 2023-08-25 00:00:00 2023-08-25 00:00:00 Outpatient G_Pappas [facility] [id number] [facility] 2023-08-04 00:00:00 2023-08-04 00:00:00 Outpatient [facility] [id number] 2023-05-17 16:00:00 2023-05-17 16:00:00 Outpatient MARIA GUADALUPE FLORESCHANDRA [facility] [id number] [facility] 2023-01-20 15:58:00 2023-01-20 15:58:00 Outpatient MARIA GUADALUPE FLORESCHANDRA [facility] [id number] [facility] 2023-01-20 00:00:00 2023-01-20 00:00:00 Outpatient G_Pappas MMG [facility] [id number] [facility] 2023-01-20 00:00:00 2023-01-20 00:00:00 Chandra Flores MD: [address] [place] [address], [address], [place] [address] , Ph. [phone] MMG [facility] [id number] [facility] 2023-01-14 00:00:00 2023-01-14 00:00:00 Outpatient G_Pappas MMG [id number] [facility] 2022-06-02 10:03:00 2022-06-02 10:03:00 Outpatient DAMI VERDUGO [facility] [id number] [facility] 2021-12-21 09:23:00 2021-12-21 09:23:00 Outpatient WATERS_S [facility] [id number] [facility] 2021-10-28 13:06:00 2021-10-28 13:06:00 Outpatient MARIA GUADALUPE CHANDRA FLORES [facility] [id number] [facility] 2021-10-22 04:12:00 2021-10-22 04:12:00 Outpatient G_Pappas MMG MMG [id number] [facility] 2021-10-22 00:00:00 2021-10-22 00:00:00 Chandra Flores MD: [address] [facility] [address], [place] [address] , Ph. [phone] MMG [facility] [id number] [facility] 2020-07-17 10:32:00 2020-07-17 10:32:00 Outpatient G_Pappas MMG MMG [id number] [facility] 2020-03-08 11:28:00 2020-03-08 11:28:00 Outpatient G_Pappas MMG MMG [id number] [facility] 2020-02-25 11:11:00 2020-02-25 11:11:00 Outpatient G_Pappas MMG MMG [id number] [facility] 2020-02-25 11:11:00 2020-02-25 11:11:00 Outpatient G_Pappas MMG MMG [id number] [facility] 2020-02-25 00:00:00 2020-02-25 00:00:00 Chandra Flores MD: [address], [place] [address] , Ph. [phone] MMG [facility] [id number] [facility] 2019-03-26 11:23:00 2019-03-26 11:23:00 Outpatient G_Pappas MMG MMG [id number] [facility] 2018-05-15 11:00:00 2018-05-15 11:00:00 Outpatient CHANDRA VILLANUEVA [facility] [id number] [facility] Results Test Description Test Time Test Comments Results Result Co mments Source [facility] panel - [id number] 14:55:00* Test Item Value Reference Range Interpretation Comme nts Leukocytes (test code = Leukocytes) Negative Nitrite (test code = Nitrite) negative Urobilinogen (test code = Urobilinogen) .2 Protein (test code = Protein) Negative pH (test code = pH) 5.5 Blood (test code = Blood) Negative Specific [place] (test code = Specific [place]) 1.010 Ketone (test code = Ketone) Negative Bilirubin (test code = Bilirubin) Negative Glucose (test code = Glucose) 250 Appearance (test code = Appearance) Clear Color (test code = Color) Dark Yellow [facility]dipstick[facility] panel - [id number] 15:26:27* Test Item Value Reference Range Interpretation Comme nts Leukocytes (test code = Leukocytes) Negative Nitrite (test code = Nitrite) negative Urobilinogen (test code = Urobilinogen) .2 Protein (test code = Protein) Negative pH (test code = pH) 5.5 Blood (test code = Blood) Negative Specific [place] (test code = Specific [place]) 1.015 Ketone (test code = Ketone) Negative Bilirubin (test code = Bilirubin) Negative Glucose (test code = Glucose) Negative Appearance (test code = Appearance) Clear Color (test code = Color) Yellow [facility]dipstick) panel - [id number] 08:59:27* Test Item Value Reference Range Interpretation Comme nts Leukocytes (test code = Leukocytes) Large Nitrite (test code = Nitrite) negative Urobilinogen (test code = Urobilinogen) .2 Protein (test code = Protein) Negative pH (test code = pH) 6.0 Blood (test code = Blood) Negative Specific [place] (test code = Specific [place]) 1.030 Ketone (test code = Ketone) Trace Bilirubin (test code = Bilirubin) Small Glucose (test code = Glucose) Negative Appearance (test code = Appearance) Clear Color (test code = Color) Yellow [facility]
[2024-08-01 09:32] LABS: Absolute Basophils 0.1 K/uL (0-0.5); Absolute Eosinophils 0.1 K/uL (0-0.5); Absolute Lymphocytes (CBC) 1.7 K/uL (0.7-4.9); Absolute Monocytes 0.3 K/uL (0.1-1.3); Eosinophils % 2.1 % (0-4.4); Hematocrit 40.5 % (36.0-45.0); Hemoglobin 13.5 g/dL (12.0-15.0); Lymphocytes % 33.3 % (15.3-44.8); MCH 32.2 pg (27.0-35.0); MCHC 33.4 g/dL (32.0-36.0); MCV 96.4 fL (80-100); MPV 8.1 fL (7.6-11.3); Monocytes % 5.9 % (3.3-12.3); Neutrophils % 57.7 % (41.7-73.7); Platelets 305 thou/uL (152-406); Red Cell Distribution Width 14.1 % (12.1-15.2)
--- NOTE | 2024-08-01 09:41 | RAD REPORT ---
EXAM; Thorax W/ Con CLINICAL INDICATION: Cough TECHNIQUE: Routine CT scan of the chest with 100 cc Isovue-370 intravenous contrast. One or more of t he following dose reduction techniques were used: Automated exposure control, adjustment of the mA and/or kV according to patient size, and/or iterative reconstruction. Unless otherwise specified, inc idental findings do not require dedicated imaging follow-up. [id number]. COMPARISON: 2022 FINDINGS: Lungs are clear. No mediastinal or hilar lymphadenopathy. No pleural effusion. No pericardial effusion. Gastric bypass. Small hiatal hernia. Bilateral breast implants IMPRESSION: No acute abnormality is displayed
[2024-08-01 09:51] LABS: Anion Gap 7.5 mEq/L (5.0-15.0); Potassium 4.5 mEq/L (3.5-5.1); Troponin High Sensitivity 3.1 pg/mL (<58.9)
--- NOTE | 2024-08-01 09:57 | RAD REPORT ---
Procedure: Chest Single View HISTORY: Chest pain COMPARISON: 2022 FINDINGS: The lungs appear clear of acute infiltrate. No significant pleural effusion noted. The heart is normal size. IMPRESSION: No acute abnormality is displayed.
--- NOTE | 2024-08-01 10:01 | ER ---
Nurse's Notes [facility] Name: Marta Barraza Age: 49 yrs Sex: Female : 1975 Arrival Date: 08/01/2024 Time: 08:31 Bed 8 Private MD: Diagnosis: Dyspnea, unspecified Presentation: 08/01 08:37 Chief complaint: Patient states: she is feeling short of breath and feeling like it is ap3 difficult to take a deep breath. patient reports this has been going on for approx 2 days. patient also reports having a history of "lung nodules". Patient reports a recent flight of 1 hour and 45 minutes on Tuesday07/30/24. Coronavirus screen: At this time, the client does not indicate any symptoms associated with coronavirus-19. Ebola Screen: No symptoms or risks identified at this time. Initial Sepsis Screen: Does the patient meet any 2 criteria? No. Patient's initial sepsis screen is negative. Does the patient have a suspected source of infection? No. Patient's initial sepsis screen is negative. Risk Assessment: Do you want to hurt yourself or someone else? Patient reports no desire to harm self or others. Onset of symptoms was July 30, 2024. 08:37 Method Of Arrival: Ambulatory ap3 08:37 Acuity: CINDY 3 ap3 Triage Assessment: 08:39 General: Appears in no apparent distress. Behavior is calm, cooperative, appropriate ap3 for age. Pain: Denies pain. Neuro: Level of Consciousness is awake, alert, obeys commands, Oriented to person, place, time, situation. Cardiovascular: Patient's skin is warm and dry. Respiratory: Reports shortness of breath Airway is patent Respiratory effort is even, unlabored, Respiratory pattern is regular, symmetrical, Onset: The symptoms/episode began/occurred gradually, the patient has mild shortness of breath. GI: No deficits noted. No signs and/or symptoms were reported involving the gastrointestinal system. 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 - Infectious Disease History:: Denies. - Social history:: Smoking status: unknown. Screenin:40 [facility] ED Fall Risk Assessment (Adult) History of falling in the last 3 months, ap3 including since admission No falls in past 3 months (0 pts) Confusion or Disorientation No (0 pts) Intoxicated or Sedated No (0 pts) Impaired Gait No (0 pts) Mobility Assist Device Used No (0 pt) Altered Elimination No (0 pt) Score/Fall Risk Level 0 - 2 = Low Risk Oriented to surroundings, Maintained a safe environment, Educated pt \\T\\ family on fall prevention, incl call for assistance when getting out of bed, Assessed \\T\\ reinforced patient's understanding of fall precautions, Hourly rounding (assess needs \\T\\ fall precautionary measures) done, Used ambulatory aids as needed (educated on \\T\\ assisted with), Used gait belt as appropriate. Abuse screen: Denies threats or abuse. Nutritional screening: No deficits noted. Tuberculosis screening: No symptoms or risk factors identified. Assessment: 09:25 General: Appears in no apparent distress. comfortable, well groomed, Behavior is calm, ph cooperative, appropriate for age. Pain: Complains of pain in chest Quality of pain is described as tight. Neuro: Level of Consciousness is awake, alert, obeys commands, Oriented to person, place, time, situation. Cardiovascular: Reports chest pain, lightheadedness, shortness of breath, Rhythm is sinus rhythm Chest pain is described as mild. Respiratory: Reports shortness of breath on exertion Airway is patent Respiratory effort is even, unlabored, Respiratory pattern is regular, symmetrical, Breath sounds are clear bilaterally. GI: No signs and/or symptoms were reported involving the gastrointestinal system. Derm: Skin is pink, warm \\T\\ dry. Vital Signs: 08:37 BP 134 / 91; Pulse 67; Resp 18; Temp 97.7; Pulse Ox 100% on R/A; Weight 54.43 kg; ap3 Height 5 ft. 2 in. ; Pain 0/10; 10:35 BP 130 / 83; Pulse 66; Resp 17; Pulse Ox 100% ; ll1 08:37 Body Mass Index 21.95 (54.43 kg, 157.48 cm) ap3 08:37 Pain Scale: Adult ap3 ED Course: 08:36 Patient arrived in ED. mg5 08:38 Triage completed. ap3 08:40 Arm band placed on right wrist. ap3 08:42 Chapito Jackson MD is Attending Physician. ec2 08:45 Macrina Melgar RN is Primary Nurse. ph 09:24 Initial lab(s) drawn, by me, sent to lab. EKG done, by ED staff, reviewed by Chapito Jackson MD. Inserted saline lock: 22 gauge in left antecubital area, using aseptic technique. Blood collected. Flushed with 10 mL NS. 09:27 Patient has correct armband on for positive identification. Placed in gown. Bed in low ph position. Call light in reach. Side rails up X 1. shelter monitor on. Pulse ox on. NIBP on. Door closed. Noise minimized. Warm blanket given. 09:33 CT Chest W/ Con In Process Unspecified. EDMS 09:33 Basic Metabolic Panel Sent. ph 09:33 NT PRO-BNP Sent. ph 09:33 Troponin HS Sent. ph 09:49 XRAY Chest (1 view) In Process Unspecified. EDMS 10:35 No provider procedures requiring assistance completed. IV discontinued, intact, ll1 bleeding controlled, No redness/swelling at site. Pressure dressing applied. 10:39 Provided Education on: return to ED for worsening symptoms. ll1 Administered Medications: No medications were administered Medication: 09:27 VIS not applicable for this client. ph Outcome: 10:01 Discharge ordered by . ec2 10:36 Discharged to home ambulatory, ll1 10:36 Condition: stable 10:36 Discharge instructions given to patient, Instructed on discharge instructions, follow up and referral plans. medication usage, Demonstrated understanding of instructions, follow-up care, medications, Prescriptions given X 1, 10:40 Patient left the ED. ll1 Signatures: Dispatcher [employer] EDFL Macrina Melgar, RN Renay Arrieta ph, RN RN ap3 Madeline Rodríguez RN RN ll1 Leslie Issa mg5 Chapito Jackson MD MD ec2 Corrections: (The following items were deleted from the chart) 10:39 10:36 Instructed on discharge instructions, follow up and referral plans. medication ll1 usage, ll1
--- NOTE | 2024-08-01 10:01 | EDPHYS ---
Physician Documentation [facility] Name: Marta Barraza Age: 49 yrs Sex: Female : 1975 Arrival Date: 08/01/2024 Time: 08:31 Bed 8 Private MD: ED Physician Chapito Jackson HPI: 08/01 09:11 This 49 yrs old Female presents to ER via Ambulatory with complaints of ec2 Shortness Of Breath, Chest Tightness. 09:11 Patient arrives today due to concern for shortness of breath. Patient reports that she ec2 has been experiencing shortness of breath for the past several days. Patient states the shortness of breath has progressively gotten worse. Occasional cough. No fevers or chills, no nausea or vomiting. Reports no history of CHF, history of lung nodules. States that she has abnormal pulmonary function test. . 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 - Infectious Disease History:: Denies. - Social history:: Smoking status: unknown. ROS: 09:11 Constitutional: as per hpi ec2 Exam: 09:11 Constitutional: GEN: NAD Head: atraumatic Eyes: EOMI Ears: External ears are ec2 normal. CV: regular rate LUNGS: no respiratory distress, no wheezes, no rales, no rhonchi ABD: non-distended SKIN: no evidence of rashes MSK: no evidence of trauma Vital Signs: 08:37 BP 134 / 91; Pulse 67; Resp 18; Temp 97.7; Pulse Ox 100% on R/A; Weight 54.43 kg; ap3 Height 5 ft. 2 in. ; Pain 0/10; 10:35 BP 130 / 83; Pulse 66; Resp 17; Pulse Ox 100% ; ll1 08:37 Body Mass Index 21.95 (54.43 kg, 157.48 cm) ap3 08:37 Pain Scale: Adult ap3 MDM: 08:42 Medical Screening Exam initiated ec2 09:11 Data reviewed: vital signs, nurses notes. ED course: Patient arrives today for ec2 shortness of breath. Examination remarkable for well-appearing nontoxic and appears otherwise in no acute distress with a reassuring examination. Will obtain lab work, CT scan of the chest and further assess. Differential diagnosis includes ACS, anemia, electrolyte disturbances, infection.. 09:23 ED course: EKG independently reviewed and interpreted by me, shows normal sinus rhythm, ec2 rate of 64, no acute ST segment elevations, intervals are nonactionable.. 10:00 ED course: Metabolic profile, BNP, troponin are nonactionable. CT scan of the chest ec2 shows no acute intrathoracic process. 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 Return precautions given.. 08/01 08:42 Order name: Basic Metabolic Panel; Complete Time: 10:00 ec2 08/01 08:42 Order name: CBC with Diff; Complete Time: 09:40 ec2 08/01 08:42 Order name: NT PRO-BNP; Complete Time: 10:00 ec2 08/01 08:42 Order name: Troponin HS; Complete Time: 10:00 ec2 08/01 08:42 Order name: XRAY Chest (1 view); Complete Time: 10:00 ec2 08/01 09:11 Order name: CT Chest W/ Con; Complete Time: 10:00 ec2 08/01 08:42 Order name: Cardiac monitoring; Complete Time: 09:32 ec2 08/01 08:42 Order name: EKG - Nurse/Tech; Complete Time: 09:32 ec2 08/01 08:42 Order name: IV Saline Lock; Complete Time: 09:32 ec2 08/01 08:42 Order name: Labs collected and sent; Complete Time: 09:32 ec2 08/01 08:42 Order name: O2 Per Protocol; Complete Time: 09:33 ec2 08/01 08:42 Order name: O2 Sat Monitoring; Complete Time: 09:33 ec2 Administered Medications: No medications were administered Disposition Summary: 08/01/24 10:01 Discharge Ordered Notes: Location: Home ec2 Condition: Stable ec2 Diagnosis - Dyspnea, unspecified ec2 Followup: ec2 - With: Private Physician - When: - Reason: Re-evaluation by your physician Discharge Instructions: - Discharge Summary Sheet ec2 - Shortness of Breath, Adult, [id number] ec2 Forms: - Medication Reconciliation Form ec2 - Antibiotic Education ec2 - Prescription Opioid Use ec2 - Patient Portal Instructions ec2 - Leadership Thank You Letter ec2 Prescriptions: - albuterol sulfate 90 mcg/actuation Inhalation HFA Aerosol Inhaler - inhale 2 puff INHALATION route every 4 hours administer via ventilator; 1 unit; ec2 Refills: 0, Product Selection Permitted Signatures: Dispatcher [employer] Renay Garcia RN RN ap3 Chapito Jackson MD MD ec2 Corrections: (The following items were deleted from the chart) 08:43 08:43 BASIC METABOLIC PANEL+C.LAB.BRZ ordered. EDMS EDMS 08:43 08:43 CBC+H.LAB.BRZ ordered. EDMS EDMS 08:43 08:43 PROBNP+C.LAB.BRZ ordered. EDMS EDMS 08:43 08:43 Troponin High Sensitivity+C.LAB.BRZ ordered. EDMS EDMS 08:43 08:43 Chest Single View+RAD.RAD.BRZ ordered. EDMS EDMS
[2024-08-01 11:05] VITALS: TEMP 97.7; O2SAT 100
[2024-08-01 11:06] VITALS: BP 130/83
== END 2024-08-01 10:40 | disposition home or self-care (01) ==
LOC: ER 08:31
DX: R06.00 Dyspnea, unspecified (principal); R07.89 Other chest pain; Z87.442 Personal history of urinary calculi
CPT/HCPCS: 85025; 80048; 36415; 84484; 83880; 71260; 71045; Q9967